=== PATIENT | male | born 1995 | race Caucasian/White ===

== ENCOUNTER 2016-12-09 16:38 | Emergency (ER) | payer BC, OTHER ==
[~2016-12-09] VITALS: Ht 177.8 cm; Wt 66.4 kg
[2016-12-09 16:40] VITALS: TEMP 36.6; Ht 177.8 cm; Wt 66.4 kg
[2016-12-09 17:52] LABS: BENZODIAZEPINE, URINE NEG (NEG); COCAINE,URINE NEG (NEG); PHENCYCLIDINE, URINE NEG (NEG)
[2016-12-09 18:25] LABS: BUN/CREATININE RATIO 16.2 (10-20); CALCIUM 8.8 mg/dl (8.5-10.1); CREATININE 1.2 mg/dl (0.60-1.40); POTASSIUM 3.7 mmol/L (3.5-5.1)
[2016-12-09 18:27] LABS: ACETAMINOPHEN < 2 ug/ml (10-30)
[2016-12-09 18:37] LABS: ALB/GLOB RATIO 1.4 (0.9-2); THYROID STIMULATING HORMONE 0.868 uIu/ml (0.300-4.500)
[2016-12-09 19:39] LABS: HEMATOCRIT 53.5 % (42-52); MEAN CELL VOLUME 89.5 fL (80-100); MEAN CORPUSCULAR HEMOGLOBIN 29.9 pg (25-34); MEAN CORPUSCULAR HGB CONC 33.5 g/dl (32-36); MEAN PLATELET VOLUME 12.5 fL (7.4-10.4); PLATELET COUNT 124 K/uL (130-400); RED BLOOD COUNT 5.98 M/uL (4.7-6.1); WHITE BLOOD COUNT 9.87 K/uL (4.8-10.8)
[2016-12-09 19:40] LABS: BASO % 0.2 %; BASO ABS # 0.02 K/uL (0-0.2); COMPLETE YES; EOS % 1.1 %; IG% 0.2 %; LYMPH % 18.5 %; LYMPH ABS # 1.83 K/uL (1.2-3.4); MONO % 7.9 %; NEUT % 72.1 %
--- NOTE | 2016-12-09 22:54 | EMERGENCY ROOM VISIT NOTE ---
History Report prepared by Clarisse: Dayana Caballero Under the Supervision of: Dr. Dav Chase D.O. First contact with patient: 16:47 Chief Complaint: MENTAL HEALTH EVALUATION Stated Complaint: MENTAL HEATLH EVAL, SUICIDAL IDEATION History of Present Illness The patient is a 21 year old male who presents to the Emergency Room with complaints of persistent suicidal thoughts for the past several months. Per the patient's aunt, the patient lost his mother 11 years ago. She states that in September, the patient's father committed suicide. The patient's aunt states that the patient has recently been in a bad place and is wanting to get help. The patient denies any specific plan, but reports depression. He denies any alcohol use or tobacco use. The patient states that he does use marijuana, noting that it "mellows him out." He denies any previous treatment for depression. Source of History: patient, family (aunt) Onset: past several months Position: other (global) Quality: other (suicidal thoughts) Timing: other (persistent) Note: Associated Symptoms: depression Review of Systems See HPI for pertinent positives & negatives. A total of 10 systems reviewed and were otherwise negative. Past Medical & Surgical No pertinent past medical history Family History Suicide Social History Smoking Status: Never Smoker Smokeless Tobacco Use: No Alcohol Use: none Drug Use: marijuana Marital Status: single Current/Historical Medications No Active Prescriptions or Reported Meds Allergies Coded Allergies: No Known Allergies (Unverified , 12/09/16) Physical Exam Vital Signs Date Time Temp Pulse Resp B/P (MAP) Pulse Ox O2 Delivery O2 Flow Rate FiO2 12/09/16 18:22 80 16 129/59 98 Room Air 12/09/16 16:40 36.6 84 16 137/81 97 Room Air Physical Exam CONSTITUTIONAL/VITAL SIGNS: Reviewed / noted above. GENERAL: Non-toxic in appearance. INTEGUMENTARY: Warm, dry, and [place]. HEAD: Normocephalic. EYES: without scleral icterus or trauma. Horizontal nystagmus at baseline ENT/OROPHARYNX: clear and moist. LYMPHADENOPATHY/NECK: Is supple without lymphadenopathy or meningismus. RESPIRATORY: Lungs clear and equal. CARDIOVASCULAR: Regular rate and rhythm. GI/ABDOMEN: Soft and nontender. No organomegaly or pulsatile mass. No rebound or guarding. Normal bowel sounds. EXTREMITIES: Warm and well perfused. BACK: No CVA tenderness. NEUROLOGICAL: Intact without focal deficits. PSYCHIATRIC: Suicidal ideation MUSCULOSKELETAL: Normally developed with good muscle tone. Medical Decision & Procedures Laboratory Results 12/09/16 17:29 Red Blood Count 5.98, Mean Corpuscular Volume 89.5, Mean Corpuscular Hemoglobin 29.9, Mean Corpuscular Hemoglobin Concent 33.5, Mean Platelet Volume 12.5, Neutrophils (%) (Auto) 72.1, Lymphocytes (%) (Auto) 18.5, Monocytes (%) (Auto) 7.9, Eosinophils (%) (Auto) 1.1, Basophils (%) (Auto) 0.2, Neutrophils # (Auto) 7.11, Lymphocytes # (Auto) 1.83, Monocytes # (Auto) 0.78, Eosinophils # (Auto) 0.11, Basophils # (Auto) 0.02 12/09/16 17:29 Test 12/09/16 16:51 12/09/16 17:29 Urine Opiates Screen NEG (NEG) Urine Methadone, Qualitative NEG (NEG) Urine Barbiturates NEG (NEG) Urine Phencyclidine (PCP) Level NEG (NEG) Ur Amphetamine/Methamphetamine NEG (NEG) MDMA (Ecstasy) Screen NEG (NEG) Urine Benzodiazepines Screen NEG (NEG) Urine Cocaine Metabolite NEG (NEG) Urine Marijuana (THC) POS (NEG) White Blood Count 9.87 K/uL (4.8-10.8) Red Blood Count 5.98 M/uL (4.7-6.1) Hemoglobin 17.9 g/dL (14.0-18.0) Hematocrit 53.5 % (42-52) Mean Corpuscular Volume 89.5 fL (80-100) Mean Corpuscular Hemoglobin 29.9 pg (25-34) Mean Corpuscular Hemoglobin Concent 33.5 g/dl (32-36) Platelet Count 124 K/uL (130-400) Mean Platelet Volume 12.5 fL (7.4-10.4) Neutrophils (%) (Auto) 72.1 % Lymphocytes (%) (Auto) 18.5 % Monocytes (%) (Auto) 7.9 % Eosinophils (%) (Auto) 1.1 % Basophils (%) (Auto) 0.2 % Neutrophils # (Auto) 7.11 K/uL (1.4-6.5) Lymphocytes # (Auto) 1.83 K/uL (1.2-3.4) Monocytes # (Auto) 0.78 K/uL (0.11-0.59) Eosinophils # (Auto) 0.11 K/uL (0-0.5) Basophils # (Auto) 0.02 K/uL (0-0.2) RDW Standard Deviation 41.8 fL (36.4-46.3) RDW Coefficient of Variation 12.7 % (11.5-14.5) Immature Granulocyte % (Auto) 0.2 % Immature Granulocyte # (Auto) 0.02 K/uL (0.00-0.02) Red Blood Cell Morphology Unremarkable Anion Gap 7.0 mmol/L (3-11) Est Creatinine Clear Calc Drug Dose 92.2 ml/min Estimated GFR () 100.3 Estimated GFR (Non- 86.5 BUN/Creatinine Ratio 16.2 (10-20) Calcium Level 8.8 mg/dl (8.5-10.1) Total Bilirubin 1.0 mg/dl (0.2-1) Aspartate Amino Transf (AST/SGOT) 39 U/L (15-37) Alanine Aminotransferase (ALT/SGPT) 50 U/L (12-78) Alkaline Phosphatase 95 U/L (45-117) Total Protein 7.1 gm/dl (6.4-8.2) Albumin 4.2 gm/dl (3.4-5.0) Globulin 2.9 gm/dl (2.5-4.0) Albumin/Globulin Ratio 1.4 (0.9-2) Thyroid Stimulating Hormone (TSH) 0.868 uIu/ml (0.300-4.500) Salicylates Level < 1.7 mg/dl (2.8-20) Acetaminophen Level < 2 ug/ml (10-30) Ethyl Alcohol mg/dL < 3.0 mg/dl (0-3) Laboratory results as stated above per my review. ED Course 1650: Previous medical records were reviewed. The patient was evaluated in room A6. A complete history and physical examination was performed. 6: Per the Psych Chemical Lab Supervisor, the patient has been accepted at the [facility] for further psychiatric care and evaluation. Medical Decision Differential includes toxic ingestions, self-mutilation, suicidal ideation, suicide attempt, and depression. This is a 21-year-old male who presents to the ED with a chief complaint of suicidal ideation. The patient details are listed above. The patient was medically cleared. He is accepted at the [facility]. He is being transported there by ambulance. Medication Reconcilliation Current Medication List: was personally reviewed by me Blood Pressure Screening Patient's blood pressure: Normal blood pressure Blood pressure disposition: Did not require urgent referral Impression Primary Impression: Suicidal ideation Scribe Attestation The scribe's documentation has been prepared under my direction and personally reviewed by me in its entirety. I confirm that the note above accurately reflects all work, treatment, procedures, and medical decision making performed by me. Departure Information Dispostion Mental Health Acute Care Prescriptions No Active Prescriptions or Reported Meds Referrals No Doctor, Assigned (PCP)
[2016-12-09 23:31] VITALS: BP 121/63; PULSE 82; O2SAT 98
== END 2016-12-09 23:32 ==
LOC: C.EDB 16:40 → C.EDA 23:32
DX: R45.851 Suicidal ideations (principal)

== ENCOUNTER 2017-02-02 16:48 | Emergency (ER) | payer BC, OTHER ==
[~2017-02-02] VITALS: Ht 175.3 cm; Wt 68.0 kg
[2017-02-02 16:52] VITALS: Ht 175.3 cm; Wt 68.0 kg
--- NOTE | 2017-02-02 17:15 | EMERGENCY ROOM VISIT NOTE ---
History Report prepared by Clarisse: Priya Sultana Under the Supervision of: Dr. Edenilson Beal D.O. First contact with patient: 16:58 Chief Complaint: MENTAL HEALTH EVALUATION Stated Complaint: SUICIDAL THOUGHTS History of Present Illness The patient is a 21 year old male who presents to the Emergency Room with complaints of suicidal thoughts beginning 2 weeks ago. Per a friend, the patient was discharged from [facility] on December 18 and was placed on medication. The patient states that he is no longer taking medication and has not been since thirty days after he was discharged from [facility]. The patient reports that he has suicidal thoughts a couple times per year. He denies any attempt at suicide. He reports that he saw his therapist 4 days ago. He states that he was diagnosed with bipolar disorder, schizophrenia, and PTSD. Per a friend, the patient was hearing voices in November but that he is not hearing them any more. Per a friend, the patient has also been very angry recently. Per a friend, the patient has a lump on his testicle that he would like to get checked. He reports that he would also have groin pain. The patient denies nausea and vomiting. Per case management, the patient's father committed suicide. Source of History: patient, friend, other (case management) Onset: 2 weeks ago Position: other (global) Quality: other (suicidal thoughts ) Timing: constant Associated Symptoms: No nausea, No vomiting Note: additional symptom: groin pain Review of Systems See HPI for pertinent positives & negatives. A total of 10 systems reviewed and were otherwise negative. Past Medical & Surgical Medical Problems: (1) Bipolar disorder (2) Schizophrenia Family History Suicide Social History Smoking Status: Never Smoker Alcohol Use: none Drug Use: marijuana Marital Status: single Current/Historical Medications Scheduled Risperidone (Risperdal), 1.5 TAB PO HS Sertraline (Zoloft), 100 MG PO DAILY Allergies Coded Allergies: No Known Allergies (Unverified , 02/02/17) Physical Exam Vital Signs Date Time Temp Pulse Resp B/P (MAP) Pulse Ox O2 Delivery O2 Flow Rate FiO2 02/02/17 22:14 52 20 97/49 98 Room Air 02/02/17 16:52 36.6 60 16 122/70 98 Room Air Physical Exam GENERAL: Patient is awake, alert, and in no acute distress. Patient is resting comfortably and mildly anxious and guarded. EYES: The conjunctivae are clear. The pupils are round and reactive. EARS, NOSE, MOUTH AND THROAT: The nose is without any evidence of any deformity. Mucous membranes are moist tongue is midline NECK: The neck is nontender and supple. RESPIRATORY: Normal respiratory effort is noted there is no evidence of wheezing rhonchi or rales CARDIOVASCULAR: Regular rate and rhythm noted there no murmurs rubs or gallops normal S1 normal S2 GASTROINTESTINAL: The abdomen is soft. Bowel sounds are present in all quadrants. Abdomen is nontender MUSCULOSKELETAL/EXTREMITIES: There is no evidence of gross deformity full range of motion is noted in the hips and shoulders SKIN: There is no obvious evidence of any rash. There are no petechiae, pallor or cyanosis noted. NEUROLOGIC: Patient is awake alert and oriented x3 PSYCH: Affect was flat. Patient shows poor eye contact. He is slow to answer questions. Currently admits to suicidal ideation but no plan. Medical Decision & Procedures ER Provider Diagnostic Interpretation: Radiology results as stated below per my review and radiologist interpretation: TESTICULAR ULTRASOUND HISTORY: Testicular mass COMPARISON: None. FINDINGS: Right testis: 4.2 x 2.8 x 2.2 cm. There are no intratesticular masses. Normal color flow. Small slightly complex hydrocele demonstrating internal echoes. The epididymis is unremarkable. Left testis: 4.4 x 2.9 x 2.0 cm. There are no intratesticular masses. Normal color flow. No hydrocele. The epididymis demonstrates 2 small cysts with the largest measuring 6 mm. IMPRESSION: 1. Normal bilateral testes. 2. Small slightly complex right-sided hydrocele. 3. Small left-sided epididymal head cysts. Electronically signed by: Favio San M.D. 02/02/2017 6:51 PM Dictated Date/Time: 02/02/2017 6:49 PM Laboratory Results 02/02/17 17:21 Red Blood Count 6.14, Mean Corpuscular Volume 89.1, Mean Corpuscular Hemoglobin 30.5, Mean Corpuscular Hemoglobin Concent 34.2, Mean Platelet Volume 12.7, Neutrophils (%) (Auto) 62.0, Lymphocytes (%) (Auto) 26.4, Monocytes (%) (Auto) 9.5, Eosinophils (%) (Auto) 1.5, Basophils (%) (Auto) 0.2, Neutrophils # (Auto) 5.27, Lymphocytes # (Auto) 2.24, Monocytes # (Auto) 0.81, Eosinophils # (Auto) 0.13, Basophils # (Auto) 0.02 02/02/17 17:21 Test 02/02/17 17:05 02/02/17 17:21 Urine Color YELLOW Urine Appearance CLEAR (CLEAR) Urine pH 6.5 (4.5-7.5) Urine Specific [place] 1.027 (1.000-1.030) Urine Protein TRACE (NEG) Urine Glucose (UA) NEG (NEG) Urine Ketones 1+ (NEG) Urine Occult Blood NEG (NEG) Urine Nitrite NEG (NEG) Urine Bilirubin NEG (NEG) Urine Urobilinogen NEG (NEG) Urine Leukocyte Esterase NEG (NEG) Urine WBC (Auto) 0 /hpf (0-5) Urine RBC (Auto) 0-4 /hpf (0-4) Urine Hyaline Casts (Auto) 0 /lpf (0-5) Urine Epithelial Cells (Auto) 0-5 /lpf (0-5) Urine Bacteria (Auto) NEG (NEG) Urine Opiates Screen NEG (NEG) Urine Methadone, Qualitative NEG (NEG) Urine Barbiturates NEG (NEG) Urine Phencyclidine (PCP) Level NEG (NEG) Ur Amphetamine/Methamphetamine NEG (NEG) MDMA (Ecstasy) Screen NEG (NEG) Urine Benzodiazepines Screen NEG (NEG) Urine Cocaine Metabolite NEG (NEG) Urine Marijuana (THC) POS (NEG) White Blood Count 8.50 K/uL (4.8-10.8) Red Blood Count 6.14 M/uL (4.7-6.1) Hemoglobin 18.7 g/dL (14.0-18.0) Hematocrit 54.7 % (42-52) Mean Corpuscular Volume 89.1 fL (80-100) Mean Corpuscular Hemoglobin 30.5 pg (25-34) Mean Corpuscular Hemoglobin Concent 34.2 g/dl (32-36) Platelet Count 118 K/uL (130-400) Mean Platelet Volume 12.7 fL (7.4-10.4) Neutrophils (%) (Auto) 62.0 % Lymphocytes (%) (Auto) 26.4 % Monocytes (%) (Auto) 9.5 % Eosinophils (%) (Auto) 1.5 % Basophils (%) (Auto) 0.2 % Neutrophils # (Auto) 5.27 K/uL (1.4-6.5) Lymphocytes # (Auto) 2.24 K/uL (1.2-3.4) Monocytes # (Auto) 0.81 K/uL (0.11-0.59) Eosinophils # (Auto) 0.13 K/uL (0-0.5) Basophils # (Auto) 0.02 K/uL (0-0.2) RDW Standard Deviation 43.1 fL (36.4-46.3) RDW Coefficient of Variation 13.2 % (11.5-14.5) Immature Granulocyte % (Auto) 0.4 % Immature Granulocyte # (Auto) 0.03 K/uL (0.00-0.02) Anion Gap 6.0 mmol/L (3-11) Est Creatinine Clear Calc Drug Dose 81.0 ml/min Estimated GFR () 83.2 Estimated GFR (Non- 71.8 BUN/Creatinine Ratio 16.2 (10-20) Calcium Level 9.0 mg/dl (8.5-10.1) Total Bilirubin 1.2 mg/dl (0.2-1) Direct Bilirubin 0.2 mg/dl (0-0.2) Aspartate Amino Transf (AST/SGOT) 23 U/L (15-37) Alanine Aminotransferase (ALT/SGPT) 26 U/L (12-78) Alkaline Phosphatase 96 U/L (45-117) Total Protein 7.7 gm/dl (6.4-8.2) Albumin 4.7 gm/dl (3.4-5.0) Thyroid Stimulating Hormone (TSH) 1.650 uIu/ml (0.300-4.500) Ethyl Alcohol mg/dL < 3.0 mg/dl (0-3) Laboratory results per my review. ED Course 1708: The patient was evaluated in room A7. A complete history and physical examination were performed. 0: I updated the patient on his results. 0: The patient will be transferred to [place]. Medical Decision Differential diagnosis: Etiologies such as mood disorder, infection, hypoglycemia, electrolyte abnormalities, cardiac sources, intracerebral event, toxicologic, neurologic, as well as others were entertained. Nursing notes reviewed. Additional history is obtained from the patient's caregiver. The patient is a 21-year-old male who presented to emergency department for an evaluation of problems with his mental health. The patient has a history of suicidal ideation as well as schizophrenia. It sounds as though the patient has not been compliant with his medications. The patient was medically cleared in the emergency department. He was reevaluated multiple times. I discussed the patient's laboratory and radiographic studies with him. He was evaluated by the emergency Department mental health foster care case manager. At this time he was felt to be a good candidate for inpatient management. Currently bed search is underway. Medication Reconcilliation Current Medication List: was personally reviewed by me Blood Pressure Screening Patient's blood pressure: Normal blood pressure Impression Primary Impression: Depression Additional Impressions: Acute anxiety Suicidal ideation Hydrocele Scribe Attestation The scribe's documentation has been prepared under my direction and personally reviewed by me in its entirety. I confirm that the note above accurately reflects all work, treatment, procedures, and medical decision making performed by me. Departure Information Dispostion Discharge/Transfer to [facility] Referrals No Doctor, Assigned (PCP) Patient Instructions My [facility] Problem Qualifiers Primary Impression: Depression Depression Type: unspecified Qualified Codes: F32.9 - Major depressive disorder, single episode, unspecified Additional Impressions: Hydrocele Hydrocele type: unspecified Qualified Codes: N43.3 - Hydrocele, unspecified
[2017-02-02 17:20] LABS: URINE APPEARANCE CLEAR (CLEAR); URINE BILIRUBIN NEG (NEG); URINE COLOR YELLOW; URINE EPITHELIAL CELL AUTO 0-5 /lpf (0-5); URINE NITRITE NEG (NEG); URINE PH 6.5 (4.5-7.5); URINE SPECIFIC GRAVITY 1.027 (1.000-1.030); UROBILINOGEN NEG (NEG)
[2017-02-02 17:26] LABS: MANUAL MICROSCOPIC REQUIRED? NO; REVIEW REQ? NO
[2017-02-02 17:46] LABS: BENZODIAZEPINE, URINE NEG (NEG); COCAINE,URINE NEG (NEG); PHENCYCLIDINE, URINE NEG (NEG)
[2017-02-02 17:54] LABS: BUN/CREATININE RATIO 16.2 (10-20); CREATININE 1.4 mg/dl (0.60-1.40); POTASSIUM 3.9 mmol/L (3.5-5.1)
[2017-02-02 18:02] LABS: HEMATOCRIT 54.7 % (42-52); MEAN CELL VOLUME 89.1 fL (80-100); MEAN CORPUSCULAR HEMOGLOBIN 30.5 pg (25-34); MEAN CORPUSCULAR HGB CONC 34.2 g/dl (32-36); MEAN PLATELET VOLUME 12.7 fL (7.4-10.4); PLATELET COUNT 118 K/uL (130-400); RED BLOOD COUNT 6.14 M/uL (4.7-6.1)
[2017-02-02 18:03] LABS: BASO % 0.2 %; BASO ABS # 0.02 K/uL (0-0.2); COMPLETE YES; EOS % 1.5 %; IG% 0.4 %; LYMPH % 26.4 %; LYMPH ABS # 2.24 K/uL (1.2-3.4); MONO % 9.5 %
[2017-02-02 18:04] LABS: THYROID STIMULATING HORMONE 1.65 uIu/ml (0.300-4.500)
[2017-02-02] MEDS ORDERED: SERT-234 PO (18:49)
[2017-02-02] MEDS ORDERED: RISP1TAB68 PO (18:49)
--- NOTE | 2017-02-02 18:52 | DIAGNOSTIC IMAGING REPORT ---
TESTICULAR ULTRASOUND HISTORY: Testicular mass COMPARISON: None. FINDINGS: Right testis: 4.2 x 2.8 x 2.2 cm. There are no intratesticular masses. Normal color flow. Small slightly complex hydrocele demonstrating internal echoes. The epididymis is unremarkable. Left testis: 4.4 x 2.9 x 2.0 cm. There are no intratesticular masses. Normal color flow. No hydrocele. The epididymis demonstrates 2 small cysts with the largest measuring 6 mm. IMPRESSION: 1. Normal bilateral testes. 2. Small slightly complex right-sided hydrocele. 3. Small left-sided epididymal head cysts. Electronically signed by: Favio San M.D. 02/02/2017 6:51 PM Dictated Date/Time: 02/02/2017 6:49 PM
[2017-02-03 00:14] VITALS: BP 101/49; PULSE 60; TEMP 36.8; O2SAT 98
== END 2017-02-02 23:30 ==
LOC: C.EDB 16:49 → C.EDA 23:30
DX: F32.9 Major depressive disorder, single episode, unspecified (principal); F41.9 Anxiety disorder, unspecified; R45.851 Suicidal ideations; N43.3 Hydrocele, unspecified; F31.9 Bipolar disorder, unspecified; F20.9 Schizophrenia, unspecified; F12.90 Cannabis use, unspecified, uncomplicated

== ENCOUNTER → 2017-02-10 | Outpatient (CLI) | payer BC ==
[~2017-02-10] MED LIST: RISP1TAB68 PO; SERT-234 PO
[2017-02-10 12:27] LABS: ALT/SGPT 23 U/L (12-78); BLOOD UREA NITROGEN 14 mg/dl (7-18); BUN/CREATININE RATIO 11.4 (10-20); CARBON DIOXIDE 28 mmol/L (21-32); CHLORIDE 105 mmol/L (98-107); CREATININE 1.25 mg/dl (0.60-1.40); GLUCOSE 82 mg/dl (70-99); POTASSIUM 4.3 mmol/L (3.5-5.1); SODIUM 140 mmol/L (136-145)
[2017-02-10 12:28] LABS: HEMATOCRIT 51.2 % (42-52); MEAN CELL VOLUME 90.9 fL (80-100); MEAN CORPUSCULAR HEMOGLOBIN 30.2 pg (25-34); MEAN CORPUSCULAR HGB CONC 33.2 g/dl (32-36); MEAN PLATELET VOLUME 12.9 fL (7.4-10.4); PLATELET COUNT 108 K/uL (130-400); RED BLOOD COUNT 5.63 M/uL (4.7-6.1); WHITE BLOOD COUNT 6.38 K/uL (4.8-10.8)
[2017-02-10 12:31] LABS: ALB/GLOB RATIO 1.5 (0.9-2); ALKALINE PHOSPHATASE 87 U/L (45-117); AST/SGOT 24 U/L (15-37); FERRITIN 168.5 ng/ml (8.0-388.0); TOTAL IRON BINDING CAPACITY 286 mcg/dl (250-450)
[2017-02-10 13:08] LABS: BASO % 0.5 %; BASO ABS # 0.03 K/uL (0-0.2); COMPLETE YES; EOS % 1.9 %; IG% 0.3 %; LYMPH % 36.2 %; LYMPH ABS # 2.31 K/uL (1.2-3.4); MONO % 10.8 %; NEUT % 50.3 %
== END | disposition home or self-care (01) ==
LOC: C.LABBFT 09:53
PROVIDERS: ATTEND Nurse Practitioner
DX: D75.1 Secondary polycythemia (principal)

== ENCOUNTER 2017-02-11 13:27 | Emergency (ER) | payer BC ==
[~2017-02-11] VITALS: Ht 175.3 cm; Wt 68.9 kg
[2017-02-11 13:31] VITALS: Ht 175.3 cm; Wt 68.9 kg
[2017-02-11 14:29] LABS: BUN/CREATININE RATIO 12.3 (10-20); CALCIUM 8.8 mg/dl (8.5-10.1); CREATININE 1.18 mg/dl (0.60-1.40); POTASSIUM 3.7 mmol/L (3.5-5.1)
[2017-02-11 14:37] LABS: URINE APPEARANCE CLEAR (CLEAR); URINE BILIRUBIN NEG (NEG); URINE COLOR YELLOW; URINE NITRITE NEG (NEG); URINE PH 7.5 (4.5-7.5); URINE SPECIFIC GRAVITY 1.018 (1.000-1.030); UROBILINOGEN NEG (NEG)
[2017-02-11 14:39] LABS: MANUAL MICROSCOPIC REQUIRED? NO; REVIEW REQ? NO
[2017-02-11 14:40] LABS: THYROID STIMULATING HORMONE 1.29 uIu/ml (0.300-4.500)
[2017-02-11 15:19] LABS: BASO % 0.3 %; BASO ABS # 0.02 K/uL (0-0.2); COMPLETE YES; HEMATOCRIT 54.4 % (42-52); IG% 0.1 %; LYMPH % 24.1 %; LYMPH ABS # 1.63 K/uL (1.2-3.4); MEAN CELL VOLUME 89.5 fL (80-100); MEAN CORPUSCULAR HEMOGLOBIN 29.9 pg (25-34); MEAN CORPUSCULAR HGB CONC 33.5 g/dl (32-36); MEAN PLATELET VOLUME 12.5 fL (7.4-10.4); NEUT % 66.5 %; PLATELET COUNT 107 K/uL (130-400); PLT ESTIMATE DECREASED; RED BLOOD COUNT 6.08 M/uL (4.7-6.1); WHITE BLOOD COUNT 6.77 K/uL (4.8-10.8)
[2017-02-11 15:26] LABS: BENZODIAZEPINE, URINE NEG (NEG); COCAINE,URINE NEG (NEG); PHENCYCLIDINE, URINE NEG (NEG)
--- NOTE | 2017-02-11 17:40 | EMERGENCY ROOM VISIT NOTE ---
History Report prepared by Clarisse: Ramana Bower Under the Supervision of: Dr. Ivan Jensen D.O. First contact with patient: 13:38 Chief Complaint: MENTAL HEALTH EVALUATION Stated Complaint: HEARING VOICE-TOLD PATIENT TO JUMP OFF BRIDGE History of Present Illness The patient is a 21 year old male who presents to the Emergency Room for a mental health evaluation. He has a history of auditory hallucinations that began in April 2016. His father also committed suicide in September of 2016. Yesterday, the voice told him to jump off a bridge. They have never done this before. He notes that he has not been taking his medications because he has been out of them. He would like help as an inpatient. He has only been sleeping about 3-4 hours a night. He also sold his possessions because he said he did not need them anymore. He denies any alcohol use. He admits to frequent marijuana use. Per the patient's psychiatric counsellor, he was seen at the [facility] in September for a suicidal ideation. He has not tried to commit suicide. He was seen in [facility] last week for a SI, but lied to them and signed out AMA. Yesterday, he posted on Facebook stating that he wanted to kill himself and the voices were telling him to kill himself by jumping off a bridge. Source of History: patient Onset: Yesterday Position: other (Mental Health) Symptom Intensity: severe Quality: other (Auditory Hallucinations) Timing: worsening Note: He denies any physical symptoms. Review of Systems See HPI for pertinent positives & negatives. A total of 10 systems reviewed and were otherwise negative. Past Medical & Surgical Medical Problems: (1) Bipolar disorder (2) Schizophrenia Family History Suicide Social History Smoking Status: Never Smoker Alcohol Use: none Drug Use: marijuana Marital Status: single Current/Historical Medications No Active Prescriptions or Reported Meds Allergies Coded Allergies: No Known Allergies (Unverified , 02/11/17) Physical Exam Vital Signs Date Time Temp Pulse Resp B/P (MAP) Pulse Ox O2 Delivery O2 Flow Rate FiO2 02/11/17 15:10 87 14 115/52 98 Room Air 02/11/17 13:31 36.6 71 16 123/72 98 Room Air Physical Exam GENERAL: Standing in the room, alert, anxious appearing, well nourished, no distress, non-toxic EYE EXAM: normal conjunctiva OROPHARYNX: no exudate, no erythema, lips, buccal mucosa, and tongue normal and mucous membranes are moist NECK: supple, no nuchal rigidity, no adenopathy, non-tender LUNGS: Clear to auscultation. Normal chest wall mechanics HEART: no murmurs, S1 normal and S2 normal ABDOMEN: abdomen soft, non-tender, normo-active bowel sounds, no masses, no rebound or guarding. BACK: Back is symmetrical on inspection and there is no deformity, no midline tenderness, no CVA tenderness. SKIN: no rashes and no bruising UPPER EXTREMITIES: upper extremities are grossly normal. LOWER EXTREMITIES: No pitting edema. NEURO EXAM: Normal sensorium, cranial nerves II-XII grossly intact, normal speech, no gross weakness of arms, no gross weakness of legs. PSYCH EXAM: Flat affect. Makes poor eye contact. Admits to auditory hallucinations telling him to kill himself. Medical Decision & Procedures Laboratory Results 02/11/17 13:54 Red Blood Count 6.08, Mean Corpuscular Volume 89.5, Mean Corpuscular Hemoglobin 29.9, Mean Corpuscular Hemoglobin Concent 33.5, Mean Platelet Volume 12.5, Neutrophils (%) (Auto) 66.5, Lymphocytes (%) (Auto) 24.1, Monocytes (%) (Auto) 8.0, Eosinophils (%) (Auto) 1.0, Basophils (%) (Auto) 0.3, Neutrophils # (Auto) 4.50, Lymphocytes # (Auto) 1.63, Monocytes # (Auto) 0.54, Eosinophils # (Auto) 0.07, Basophils # (Auto) 0.02 02/11/17 13:54 Test 02/11/17 13:54 02/11/17 14:15 White Blood Count 6.77 K/uL (4.8-10.8) Red Blood Count 6.08 M/uL (4.7-6.1) Hemoglobin 18.2 g/dL (14.0-18.0) Hematocrit 54.4 % (42-52) Mean Corpuscular Volume 89.5 fL (80-100) Mean Corpuscular Hemoglobin 29.9 pg (25-34) Mean Corpuscular Hemoglobin Concent 33.5 g/dl (32-36) Platelet Count 107 K/uL (130-400) Mean Platelet Volume 12.5 fL (7.4-10.4) Neutrophils (%) (Auto) 66.5 % Lymphocytes (%) (Auto) 24.1 % Monocytes (%) (Auto) 8.0 % Eosinophils (%) (Auto) 1.0 % Basophils (%) (Auto) 0.3 % Neutrophils # (Auto) 4.50 K/uL (1.4-6.5) Lymphocytes # (Auto) 1.63 K/uL (1.2-3.4) Monocytes # (Auto) 0.54 K/uL (0.11-0.59) Eosinophils # (Auto) 0.07 K/uL (0-0.5) Basophils # (Auto) 0.02 K/uL (0-0.2) RDW Standard Deviation 42.2 fL (36.4-46.3) RDW Coefficient of Variation 13.0 % (11.5-14.5) Immature Granulocyte % (Auto) 0.1 % Immature Granulocyte # (Auto) 0.01 K/uL (0.00-0.02) Platelet Estimate DECREASED Anion Gap 7.0 mmol/L (3-11) Est Creatinine Clear Calc Drug Dose 97.3 ml/min Estimated GFR () 102.3 Estimated GFR (Non- 88.3 BUN/Creatinine Ratio 12.3 (10-20) Calcium Level 8.8 mg/dl (8.5-10.1) Total Bilirubin 1.1 mg/dl (0.2-1) Direct Bilirubin 0.2 mg/dl (0-0.2) Aspartate Amino Transf (AST/SGOT) 25 U/L (15-37) Alanine Aminotransferase (ALT/SGPT) 23 U/L (12-78) Alkaline Phosphatase 88 U/L (45-117) Total Protein 7.3 gm/dl (6.4-8.2) Albumin 4.6 gm/dl (3.4-5.0) Thyroid Stimulating Hormone (TSH) 1.290 uIu/ml (0.300-4.500) Ethyl Alcohol mg/dL < 3.0 mg/dl (0-3) Urine Color YELLOW Urine Appearance CLEAR (CLEAR) Urine pH 7.5 (4.5-7.5) Urine Specific [place] 1.018 (1.000-1.030) Urine Protein NEG (NEG) Urine Glucose (UA) NEG (NEG) Urine Ketones TRACE (NEG) Urine Occult Blood NEG (NEG) Urine Nitrite NEG (NEG) Urine Bilirubin NEG (NEG) Urine Urobilinogen NEG (NEG) Urine Leukocyte Esterase NEG (NEG) Urine Opiates Screen NEG (NEG) Urine Methadone, Qualitative NEG (NEG) Urine Barbiturates NEG (NEG) Urine Phencyclidine (PCP) Level NEG (NEG) Ur Amphetamine/Methamphetamine NEG (NEG) MDMA (Ecstasy) Screen NEG (NEG) Urine Benzodiazepines Screen NEG (NEG) Urine Cocaine Metabolite NEG (NEG) Urine Marijuana (THC) POS (NEG) Laboratory results per my review. ED Course ED COURSE: Vital signs were reviewed and showed normal vitals. The patients medical record was reviewed The above diagnostic studies were performed and reviewed. ED treatments and interventions as stated above. 1338: The patient was evaluated in room A7. A complete history and physical examination was performed. 1710: I reevaluated the patient at this time. 1800: The patient was signed out to Dr. Beal at the change in shifts. Medical Decision Differential diagnosis: Etiologies such as mood disorder, infection, hypoglycemia, electrolyte abnormalities, cardiac sources, intracerebral event, toxicologic, neurologic, as well as others were entertained. Patient is a 21-year-old male who presents to ER for hearing voices which are telling him to kill himself. Patient has been hearing voices since this past April that recently getting worse. Multiple stays in mental health facilities. CBC all BMP, LFTs and TSH was normal. Total bili was slightly elevated at 1.1. Alcohol negative. Marijuana was positive which she admits to. UA was negative. Patient was brought in by attendance secretary. Patient did post on Facebook that he is going to kill himself. 302 petition. He also stole all of his possessions as he states he will not need them anymore. Patient is medically stable and bed search is being performed. Patient is currently agreeable to come in on a 201. Patient was signed out to Dr. Beal with bed search in process. Medication Reconcilliation Current Medication List: was personally reviewed by me Blood Pressure Screening Patient's blood pressure: Normal blood pressure Blood pressure disposition: Did not require urgent referral Impression Primary Impression: Mood disorder Additional Impression: Auditory hallucinations Scribe Attestation The scribe's documentation has been prepared under my direction and personally reviewed by me in its entirety. I confirm that the note above accurately reflects all work, treatment, procedures, and medical decision making performed by me. Departure Information Dispostion Still a Patient Prescriptions No Active Prescriptions or Reported Meds Referrals No Doctor, Assigned (PCP) Patient Instructions My [facility] Problem Qualifiers
[2017-02-11 20:11] VITALS: TEMP 36.8
--- NOTE | 2017-02-11 21:25 | EMERGENCY ROOM VISIT NOTE ---
ED Visit Note First contact with patient: 21:25 I received this patient at change of shift signout from Dr. Jensen. Please see his note for complete history and physical. The patient was medically cleared prior to my arrival. Bed search was underway. I was notified by the emergency Department mental health delegate that the patient was accepted at [facility] for a voluntary admission. Transfer paperwork and medical necessity form as well as 201 was filled out by myself. The patient had no requirements.
[2017-02-12 00:30] VITALS: BP 127/60; PULSE 90; O2SAT 99
== END 2017-02-12 00:30 | disposition short-term general hospital (02) ==
LOC: C.EDB 13:29 → C.EDA 02-12 00:30
DX: F39 Unspecified mood [affective] disorder (principal); R44.0 Auditory hallucinations; F20.9 Schizophrenia, unspecified

== ENCOUNTER 2017-06-18 17:18 | Emergency (ER) | payer BC, OTHER ==
[~2017-06-18] VITALS: Ht 175.3 cm; Wt 72.1 kg
[2017-06-18 17:28] VITALS: TEMP 37; Ht 175.3 cm; Wt 72.1 kg
[2017-06-18] MEDS ORDERED: ARIP1.3I SQ (18:30)
[2017-06-18 18:40] LABS: HEMATOCRIT 52.3 % (42-52); HEMOGLOBIN 18.6 g/dL (14.0-18.0); MEAN CORPUSCULAR HEMOGLOBIN 31.3 pg (25-34); MEAN CORPUSCULAR HGB CONC 35.6 g/dl (32-36); MEAN PLATELET VOLUME 12.5 fL (7.4-10.4); PLATELET COUNT 116 K/uL (130-400); RED CELL DISTRIBUTION WIDTH CV 12.9 % (11.5-14.5); RED CELL DISTRIBUTION WIDTH SD 41.5 fL (36.4-46.3)
[2017-06-18 18:43] LABS: ALBUMIN 4.6 gm/dl (3.4-5.0); CALCIUM 9.4 mg/dl (8.5-10.1); CREATININE 1.34 mg/dl (0.60-1.40); POTASSIUM 3.5 mmol/L (3.5-5.1)
[2017-06-18 18:53] LABS: TOTAL PROTEIN 7.7 gm/dl (6.4-8.2)
--- NOTE | 2017-06-18 20:34 | EMERGENCY ROOM VISIT NOTE ---
History Report prepared by Clarisse: Justyna Hurtado Under the Supervision of: Dr. Wayne Mujica M.D. First contact with patient: 17:36 Chief Complaint: MENTAL HEALTH EVALUATION Stated Complaint: MENTAL HEALTH EVAL History of Present Illness The patient is a 22 year old male who presents to the Emergency Room with complaints of worsening depression starting several days ago. His father last year and he has been thinking more about this recently. The patient's sister states that he wrote on his Facebook page 3 days ago about wanting to take his own life. He also sent some concerning messages today to a friend. The patient denies any thoughts of hurting himself or others. He denies any auditory or visual hallucinations. He is eating and sleeping normally. He denies any recent head injury. He denies any headache, vomiting, fever, flu symptoms, or pain. He admits to smoking marijuana, but not recently. He has a history of bipolar and schizophrenia. He has been taking his medications. He states he only came here because he was depressed and wanted to talk to somebody. Source of History: patient, family Onset: several days ago Position: other (global) Quality: other (depression) Timing: worsening Associated Symptoms: No fevers, No headache, No vomiting Note: Pt denies hallucinations, thoughts of hurting others. Review of Systems See HPI for pertinent positives & negatives. A total of 10 systems reviewed and were otherwise negative. Past Medical & Surgical Medical Problems: (1) Bipolar disorder (2) Schizophrenia Family History Suicide Social History Smoking Status: Never Smoker Drug Use: marijuana Marital Status: single Occupation Status: unemployed Current/Historical Medications Scheduled Aripiprazole (Abiliftima Maintena), 0 SQ MONTHLY Allergies Coded Allergies: No Known Allergies (Unverified , 06/18/17) Physical Exam Vital Signs Date Time Temp Pulse Resp B/P (MAP) Pulse Ox O2 Delivery O2 Flow Rate FiO2 06/18/17 17:28 37.0 85 18 137/89 97 Room Air Physical Exam Constitutional: Vital signs reviewed. Eyes: Pupils are equal round reactive to light. Conjunctiva are noninjected. Old looking bruise to the lateral aspect of the right eye without any bony tenderness. ENT: Pharynx is clear without erythema or exudate. Mucous membranes are moist. Neck supple without meningeal signs. Respiratory: Clear to auscultation bilaterally. Breath sounds are equal bilaterally. Cardiovascular: Regular rate and rhythm. No rubs or gallops. GI: Soft, nondistended and nontender. Bowel sounds are present. Musculoskeletal: No peripheral edema. No wrist lacerations. Integumentary: No cyanosis. Neurological: The patient is awake and alert. No focal deficits. Psychiatric: Flat affect. Medical Decision & Procedures Laboratory Results 06/18/17 17:53 06/18/17 17:53 Test 06/18/17 17:53 06/18/17 18:10 Red Blood Count 5.94 M/uL (4.7-6.1) Mean Corpuscular Volume 88.0 fL (80-100) Mean Corpuscular Hemoglobin 31.3 pg (25-34) Mean Corpuscular Hemoglobin Concent 35.6 g/dl (32-36) RDW Standard Deviation 41.5 fL (36.4-46.3) RDW Coefficient of Variation 12.9 % (11.5-14.5) Mean Platelet Volume 12.5 fL (7.4-10.4) Platelet Estimate DECREASED Anion Gap 6.0 mmol/L (3-11) Est Creatinine Clear Calc Drug Dose 87.2 ml/min Estimated GFR () 87.2 Estimated GFR (Non- 75.2 BUN/Creatinine Ratio 17.3 (10-20) Calcium Level 9.4 mg/dl (8.5-10.1) Total Bilirubin 0.7 mg/dl (0.2-1) Direct Bilirubin 0.1 mg/dl (0-0.2) Aspartate Amino Transf (AST/SGOT) 29 U/L (15-37) Alanine Aminotransferase (ALT/SGPT) 33 U/L (12-78) Alkaline Phosphatase 75 U/L (45-117) Total Protein 7.7 gm/dl (6.4-8.2) Albumin 4.6 gm/dl (3.4-5.0) Thyroid Stimulating Hormone (TSH) 2.510 uIu/ml (0.300-4.500) Salicylates Level < 1.7 mg/dl (2.8-20) Acetaminophen Level < 2 ug/ml (10-30) Ethyl Alcohol mg/dL < 3.0 mg/dl (0-3) Urine Opiates Screen NEG (NEG) Urine Methadone, Qualitative NEG (NEG) Urine Barbiturates NEG (NEG) Urine Phencyclidine (PCP) Level NEG (NEG) Ur Amphetamine/Methamphetamine NEG (NEG) MDMA (Ecstasy) Screen NEG (NEG) Urine Benzodiazepines Screen NEG (NEG) Urine Cocaine Metabolite NEG (NEG) Urine Marijuana (THC) POS (NEG) Laboratory results as reviewed by me. ED Course 1738: The patient was evaluated in room A5. A complete history and physical exam was performed. 2029: The patient is declining voluntary admission at this time. His sister is filling out a 302. [facility] is involved. 2143: The patient is unwilling to sign in. 302 warrant signed, pending placement. Medical Decision This is a 22-year-old male who presents for mental health evaluation. I did perform a limited focused review of portions of the patient's old chart on the electronic medical record. The patient was admitted to a mental health facility voluntarily in January of last year. He has a history of bipolar and schizophrenia. I did evaluate the patient as noted above. I did obtain history from the patient as well as his sister. His sister did show me messages that he put on his Facebook page which stated that he wanted to kill himself rather than take his injections. I did order and review the patient's blood work as noted in the electronic medical record. The patient does have a slightly elevated hemoglobin as well as low platelets. Review of his old lab work demonstrates similar findings previously. I did medically clear the patient. He is being assessed by [facility] for [facility] care. Patient was signed out to Dr. sin. Medication Reconcilliation Current Medication List: was personally reviewed by me Blood Pressure Screening Patient's blood pressure: Elevated blood pressure Blood pressure disposition: Elevated BP felt to be situational Impression Primary Impression: Mood disorder Additional Impression: Suicidal ideation Scribe Attestation The scribe's documentation has been prepared under my direct and personally reviewed by me in its entirety. I confirm that the note above accurately reflects all work, treatment, procedures, and medical decision making performed by me. Departure Information Dispostion Still a Patient Referrals No Doctor, Assigned (PCP) Forms HOME CARE DOCUMENTATION FORM, IMPORTANT VISIT INFORMATION Patient Instructions My [facility] Problem Qualifiers
[2017-06-19 02:14] VITALS: BP 128/55; PULSE 72; O2SAT 100
--- NOTE | 2017-06-28 23:01 | EMERGENCY ROOM VISIT NOTE ---
ED Visit Note First contact with patient: 04:00 Pt signed out to me by Dr. Mujica. 302 signed. Pt admitted to the [facility].
== END 2017-06-19 02:14 ==
LOC: C.EDB 17:19 → C.EDA 06-19 02:14
DX: F31.9 Bipolar disorder, unspecified (principal); F20.9 Schizophrenia, unspecified; R45.851 Suicidal ideations; D69.6 Thrombocytopenia, unspecified; D58.2 Other hemoglobinopathies; R03.0 Elevated blood-pressure reading, without diagnosis of hypertension; F12.90 Cannabis use, unspecified, uncomplicated; S00.11XA Contusion of right eyelid and periocular area, initial encounter; X58.XXXA Exposure to other specified factors, initial encounter; Z81.8 Family history of other mental and behavioral disorders

== ENCOUNTER 2020-10-24 17:03 | Inpatient (IN) ==
--- NOTE | 2020-10-24 17:17 | Emergency Department Note ---
Impression & Plan Suicidal ideation, Bipolar disorder ED Provider Note NAME: THERESA DALLAS AGE: 25 SEX: M : 1995 ARRIVES VIA: Walk-In INFORMANT: Patient, ED PROVIDER(S): Quinton Ferguson MD Chief Complaint: Mental wellness concern HPI: Patient was brought in by [facility] police due to concern for mental wellness and concern for SI. The patient reportedly had sent some text messages to an aunt staying that he would kill himself. Patient currently denies that at that time. Patient denies any prior history of SI. The patient denies any HI or AVH. Patient states his appetite has been good but his sleep h as been okay albeit sometimes not as much. The patient does not have access to guns. The patient has not been on medications for history of mental wellness since 2018. Patient denies any alcohol or tobacco use. The patient does occasionally use marijuana. The patient does not live by himself and feels safe at home. ROS: See HPI for pertinent positives and negatives. A total of 10 systems were reviewed and otherwise negative. Past medical history: See below Surgical history: See below Social history: See below Physical Exam: GENERAL: Wearing a mask. NAD, non-toxic. EYE EXAM: Normal conjunctiva. PERRL, no anisocoria and EOM's grossly intact w/o pain. NECK: Supple, no nuchal rigidity, no adenopathy, non-tender. No signs of meningismus. LUNGS: Clear to auscultation. Normal chest wall mechanics. HEART: NSR, no MRG. ABDOMEN: Abdomen soft, non-tender, normo-active bowel sounds, no masses, no rebound or guarding. BACK: No CVA TTP. SKIN: No rashes and no bruising. UPPER EXTREMITIES: Upper extremities are grossly normal. LOWER EXTREMITIES: Grossly normal, no edema. NEURO EXAM: A&O x3, cranial nerves II-XII grossly intact, normal speech, moves all 4 extremities on command w/o issue. Psych: Denies SI, HI, or AVH. Differential diagnoses: Mood disorder, infection, hypoglycemia, electrolyte abnormalities, cardiac sources, intracerebral event, toxicologic, trauma, neurologic, as well as other pathologies. Course: Patient was seen and evaluated the bedside. Full history physical exam was performed. MDM: Patient was seen due to concern for mental wellness. Patient did have bladder completed was deemed medically medically cleared. Covid pending. Referral is made for 3 S. Patient was signed out to Dr. Burr pending admission. Past Med/Surg History Medical History Bipolar disorder Schizophrenia Suicidal ideation Surgical History No pertinent past surgical history Family History Father Suicide Social History Smoking Status: Never smoker Preferred Language: Ukrainian Feels Safe at Home: Yes Allergies Allergies Allergy/AdvReac Type Severity Reaction Status Date / Time No Known Allergies Allergy Verified 10/24/20 22:06 Home Meds Home Medications Medication Instructions Recorded Confirmed No Known Home Medications 09/07/18 10/24/20 Results & Data (ED) Vital Signs Vital Signs - 24 hr 10/24/20 17:25 10/24/20 23:25 Temperature 36.8 C Temperature Source Oral Pulse Rate 77 Pulse Rate [Right] 67 Pulse Rhythm Regular Pulse Rhythm [Right] Regular Pulse Strength Normal Pulse Strength [Right] Normal Respiratory Rate 18 18 Respiratory Effort / Characteristics Non-Labored Spontaneous Non-Labored Spontaneous Respiratory Depth Normal Normal Respiratory Pattern Regular Regular Blood Pressure 134/84 Blood Pressure [Right Arm] 139/72 Blood Pressure Mean 100 Blood Pressure Mean [Right Arm] 94 Blood Pressure Position Lying Blood Pressure Position [Right Arm] Lying Pulse Oximetry 98 97 Oxygen Delivery Method Room Air Room Air Sepsis Recent Fever Within 48 Hours No Sepsis New/Unexplained Change in Mental Status N/A Sepsis Action Taken by Nursing No Action Required Home Medications Current Medication List: was personally reviewed by me Laboratory Data Attestation: I reviewed the patient's lab results. Result diagrams: 10/24/20 17:51 10/24/20 17:51 Lab Results 10/24/20 10/24/20 10/24/20 Range/Units 17:28 17:28 17:51 WBC 7.43 (4.8-10.8) K/uL RBC 5.89 (4.7-6.1) M/uL Hgb 18.0 (14.0-18.0) g/dL Hct 52.3 H (42-52) % MCV 88.8 (80-100) fL MCH 30.6 (25-34) pg MCHC 34.4 (32-36) g/dL RDW Std Deviation 42.4 (36.4-46.3) fL RDW Coeff of Ashwin 13.0 (11.5-14.5) % Plt Count 118 L (130-400) K/uL MPV 12.0 H (7.4-10.4) fL Immature Gran % (Auto) 0.1 % Neut % (Auto) 60.3 % Lymph % (Auto) 27.1 % [place] % (Auto) 10.4 % Eos % (Auto) 1.7 % Baso % (Auto) 0.4 % Neut # (Auto) 4.48 (1.4-6.5) K/uL Lymph # (Auto) 2.01 (1.2-3.4) K/uL [place] # (Auto) 0.77 H (0.11-0.59) K/uL Eos # (Auto) 0.13 (0-0.5) K/uL Baso # (Auto) 0.03 (0-0.2) K/uL Immature Gran # (Auto) 0.01 (0.00-0.02) K/uL Platelet Estimate Decreased L (Normal) Sodium (136-145) mmol/L Potassium (3.5-5.1) mmol/L Chloride (98-107) mmol/L Carbon Dioxide (21-32) mmol/L Anion Gap (3-11) BUN (7-18) mg/dl Creatinine (0.6-1.4) mg/dl Est Cr Clr Drug Dosing ml/min Est GFR ( Amer) ml/min Est GFR (Non-Af Amer) ml/min BUN/Creatinine Ratio (10-20) Glucose (70-99) mg/dl Calcium (8.5-10.1) mg/dl Total Bilirubin (0.2-1) mg/dl AST (15-37) U/L ALT (12-78) U/L Alkaline Phosphatase (45-117) U/L Total Protein (6.4-8.2) gm/dl Albumin (3.4-5.0) gm/dl Globulin (2.5-4.0) gm/dl Albumin/Globulin Ratio (0.9-2) TSH (0.300-4.500) uIu/ml Urine Color Yellow Urine Appearance Clear (Clear) Urine pH 6.5 (4.5-7.5) Ur Specific [place] 1.024 (1.000-1.030) Urine Protein 1+ H (Negative) Urine Glucose (UA) Negative (Negative) Urine Ketones Trace H (Negative) Urine Blood Negative (Negative) Urine Nitrite Negative (Negative) Urine Bilirubin Negative (Negative) Urine Urobilinogen Negative (Negative) Ur Leukocyte Esterase Negative (Negative) Urine WBC (Auto) 1-5 (0-5) /hpf Urine RBC (Auto) 0-4 (0-4) /hpf U Hyaline Cast (Auto) 0 (0-5) /lpf U Epithel Cells (Auto) 0-5 (0-5) /lpf Urine Bacteria (Auto) Negative (Negative) Salicylates (2.8-20) mg/dl Urine Opiates Screen Neg (Neg) Ur Methadone, Qual Neg (Neg) Acetaminophen (10-30) ug/ml Urine Barbiturates Neg (Neg) Ur Phencyclidine (PCP) Neg (Neg) U Amphetamin/Meth Scrn Neg (Neg) MDMA (Ecstasy) Screen Neg (Neg) U Benzodiazepines Scrn Neg (Neg) Ur Cocaine Metabolite Neg (Neg) U Marijuana (THC) Screen Pos H (Neg) Ethyl Alcohol mg/dL (0-3) mg/dl COVID-19 Eval Order 10/24/20 10/24/20 10/24/20 Range/Units 17:51 17:51 17:51 WBC (4.8-10.8) K/uL RBC (4.7-6.1) M/uL Hgb (14.0-18.0) g/dL Hct (42-52) % MCV (80-100) fL MCH (25-34) pg MCHC (32-36) g/dL RDW Std Deviation (36.4-46.3) fL RDW Coeff of Ashwin (11.5-14.5) % Plt Count (130-400) K/uL MPV (7.4-10.4) fL Immature Gran % (Auto) % Neut % (Auto) % Lymph % (Auto) % [place] % (Auto) % Eos % (Auto) % Baso % (Auto) % Neut # (Auto) (1.4-6.5) K/uL Lymph # (Auto) (1.2-3.4) K/uL [place] # (Auto) (0.11-0.59) K/uL Eos # (Auto) (0-0.5) K/uL Baso # (Auto) (0-0.2) K/uL Immature Gran # (Auto) (0.00-0.02) K/uL Platelet Estimate (Normal) Sodium 141 (136-145) mmol/L Potassium 3.8 (3.5-5.1) mmol/L Chloride 107 (98-107) mmol/L Carbon Dioxide 29 (21-32) mmol/L Anion Gap 5.0 (3-11) BUN 16 (7-18) mg/dl Creatinine 1.12 (0.6-1.4) mg/dl Est Cr Clr Drug Dosing 90.8 ml/min Est GFR ( Amer) 106.0 ml/min Est GFR (Non-Af Amer) 91.5 ml/min BUN/Creatinine Ratio 14.5 (10-20) Glucose 78 (70-99) mg/dl Calcium 9.2 (8.5-10.1) mg/dl Total Bilirubin 0.8 (0.2-1) mg/dl AST 14 L (15-37) U/L ALT 19 (12-78) U/L Alkaline Phosphatase 68 (45-117) U/L Total Protein 7.1 (6.4-8.2) gm/dl Albumin 4.5 (3.4-5.0) gm/dl Globulin 2.6 (2.5-4.0) gm/dl Albumin/Globulin Ratio 1.7 (0.9-2) TSH 2.050 (0.300-4.500) uIu/ml Urine Color Urine Appearance (Clear) Urine pH (4.5-7.5) Ur Specific [place] (1.000-1.030) Urine Protein (Negative) Urine Glucose (UA) (Negative) Urine Ketones (Negative) Urine Blood (Negative) Urine Nitrite (Negative) Urine Bilirubin (Negative) Urine Urobilinogen (Negative) Ur Leukocyte Esterase (Negative) Urine WBC (Auto) (0-5) /hpf Urine RBC (Auto) (0-4) /hpf U Hyaline Cast (Auto) (0-5) /lpf U Epithel Cells (Auto) (0-5) /lpf Urine Bacteria (Auto) (Negative) Salicylates < 1.7 L (2.8-20) mg/dl Urine Opiates Screen (Neg) Ur Methadone, Qual (Neg) Acetaminophen < 2 L (10-30) ug/ml Urine Barbiturates (Neg) Ur Phencyclidine (PCP) (Neg) U Amphetamin/Meth Scrn (Neg) MDMA (Ecstasy) Screen (Neg) U Benzodiazepines Scrn (Neg) Ur Cocaine Metabolite (Neg) U Marijuana (THC) Screen (Neg) Ethyl Alcohol mg/dL < 3.0 (0-3) mg/dl COVID-19 Eval Order 10/24/20 Range/Units 23:18 WBC (4.8-10.8) K/uL RBC (4.7-6.1) M/uL Hgb (14.0-18.0) g/dL Hct (42-52) % MCV (80-100) fL MCH (25-34) pg MCHC (32-36) g/dL RDW Std Deviation (36.4-46.3) fL RDW Coeff of Ashwin (11.5-14.5) % Plt Count (130-400) K/uL MPV (7.4-10.4) fL Immature Gran % (Auto) % Neut % (Auto) % Lymph % (Auto) % [place] % (Auto) % Eos % (Auto) % Baso % (Auto) % Neut # (Auto) (1.4-6.5) K/uL Lymph # (Auto) (1.2-3.4) K/uL [place] # (Auto) (0.11-0.59) K/uL Eos # (Auto) (0-0.5) K/uL Baso # (Auto) (0-0.2) K/uL Immature Gran # (Auto) (0.00-0.02) K/uL Platelet Estimate (Normal) Sodium (136-145) mmol/L Potassium (3.5-5.1) mmol/L Chloride (98-107) mmol/L Carbon Dioxide (21-32) mmol/L Anion Gap (3-11) BUN (7-18) mg/dl Creatinine (0.6-1.4) mg/dl Est Cr Clr Drug Dosing ml/min Est GFR ( Amer) ml/min Est GFR (Non-Af Amer) ml/min BUN/Creatinine Ratio (10-20) Glucose (70-99) mg/dl Calcium (8.5-10.1) mg/dl Total Bilirubin (0.2-1) mg/dl AST (15-37) U/L ALT (12-78) U/L Alkaline Phosphatase (45-117) U/L Total Protein (6.4-8.2) gm/dl Albumin (3.4-5.0) gm/dl Globulin (2.5-4.0) gm/dl Albumin/Globulin Ratio (0.9-2) TSH (0.300-4.500) uIu/ml Urine Color Urine Appearance (Clear) Urine pH (4.5-7.5) Ur Specific [place] (1.000-1.030) Urine Protein (Negative) Urine Glucose (UA) (Negative) Urine Ketones (Negative) Urine Blood (Negative) Urine Nitrite (Negative) Urine Bilirubin (Negative) Urine Urobilinogen (Negative) Ur Leukocyte Esterase (Negative) Urine WBC (Auto) (0-5) /hpf Urine RBC (Auto) (0-4) /hpf U Hyaline Cast (Auto) (0-5) /lpf U Epithel Cells (Auto) (0-5) /lpf Urine Bacteria (Auto) (Negative) Salicylates (2.8-20) mg/dl Urine Opiates Screen (Neg) Ur Methadone, Qual (Neg) Acetaminophen (10-30) ug/ml Urine Barbiturates (Neg) Ur Phencyclidine (PCP) (Neg) U Amphetamin/Meth Scrn (Neg) MDMA (Ecstasy) Screen (Neg) U Benzodiazepines Scrn (Neg) Ur Cocaine Metabolite (Neg) U Marijuana (THC) Screen (Neg) Ethyl Alcohol mg/dL (0-3) mg/dl COVID-19 Eval Order Covid19 [facility]Now [facility] Discharge Plan Visit Data Chief Complaint: Mental Health Evaluation Stated Complaint: MENTAL HEALTH EVALUATION ED Provider: Nicanor Burr Discharge Problem: Suicidal ideation, Bipolar disorder Forms Stand Alone Forms: My [facility], Suicide Prevention Resources Prescriptions Prescriptions: No Action No Known Home Medications RF: 0 Discharge Problem: Bipolar disorder Qualifiers: Active/Remission status: remission status unspecified Qualified Code(s): F31.9 - Bipolar disorder, unspecified
[2020-10-24 17:51] LABS: Appearance Urine Clear (Clear); Bacteria Urine Automated Negative (Negative); Bilirubin Urine Negative (Negative); Blood Urine Negative (Negative); Cast Urine Automated 0 /lpf (0-5); Color Urine Yellow; Epithelial Cell Urine Auto 0-5 /lpf (0-5); Glucose Urine UA Negative (Negative); Ketones Urine Trace (Negative); Leukocyte Esterase Urine Negative (Negative); Nitrite Urine Negative (Negative); Protein Urine 1+ (Negative); RBC Urine Automated 0-4 /hpf (0-4); Specific Gravity Urine 1.024 (1.000-1.030); Urobilinogen Urine Negative (Negative); pH Urine 6.5 (4.5-7.5)
[2020-10-24 18:31] LABS: Amphetamines+Metham, Urine Neg (Neg); Barbiturates, Urine Neg (Neg); Benzodiazepine, Urine Neg (Neg); Cocaine, Urine Neg (Neg); MDMA (Ecstacy), Urine Neg (Neg); Methadone, Urine Neg (Neg); Opiate, Urine Neg (Neg); Phencyclidine, Urine Neg (Neg)
[2020-10-24 18:44] LABS: Albumin Level 4.5 gm/dl (3.4-5.0); BUN Creatinine Ratio 14.5 (10-20); Calcium 9.2 mg/dl (8.5-10.1); Creatinine Clr Calc Pharmacy 90.8 ml/min; Est GFR (Non-African American) 91.5 ml/min; Potassium 3.8 mmol/L (3.5-5.1)
[2020-10-24 18:53] LABS: Albumin Globulin Ratio 1.7 (0.9-2); Bilirubin,Total 0.8 mg/dl (0.2-1); Globulin 2.6 gm/dl (2.5-4.0); Thyroid Stimulating Hormone 2.05 uIu/ml (0.300-4.500); Total Protein 7.1 gm/dl (6.4-8.2)
[2020-10-24 19:16] LABS: Acetaminophen < 2 ug/ml (10-30); Salicylate < 1.7 mg/dl (2.8-20)
[2020-10-24 21:39] LABS: Hematocrit (blood only) 52.3 % (42-52); Mean Corpuscular Hemoglobin 30.6 pg (25-34); Mean Corpuscular Hgb Conc 34.4 g/dL (32-36); Mean Corpuscular Volume 88.8 fL (80-100); Platelet Count 118 K/uL (130-400); RDW Standard Deviation 42.4 fL (36.4-46.3); Red Blood Count 5.89 M/uL (4.7-6.1); White Blood Count 7.43 K/uL (4.8-10.8)
[2020-10-24 21:40] LABS: Basophils # (auto) 0.03 K/uL (0-0.2); Basophils % (auto) 0.4 %; Eosinophils # (auto) 0.13 K/uL (0-0.5); Eosinophils % (auto) 1.7 %; Immature Granulocytes # (auto) 0.01 K/uL (0.00-0.02); Immature Granulocytes % (auto) 0.1 %; Lymphocytes # (auto) 2.01 K/uL (1.2-3.4); Lymphocytes % (auto) 27.1 %; Monocytes # (auto) 0.77 K/uL (0.11-0.59); Monocytes % (auto) 10.4 %; Neutrophils # (auto) 4.48 K/uL (1.4-6.5); Neutrophils % (auto) 60.3 %; Platelet Estimate Decreased (Normal)
--- NOTE | 2020-10-24 23:53 | Emergency Department Note ---
ED Visit Note ED Physician Sign Out Note: 25 yr old suicidal male with concerning texts to his aunt. History of suicide attempt and father with suicide a few years ago around this date. Patient on no medications and he has history of Bipolar and Schizophrenia. Here on 201 and awaiting placement when signed out to me by Dr Ferguson. Patient stable, no distress and accepted to [address] [place] [address] for further management. Nicanor Burr MD : Bipolar disorder Qualifiers: Active/Remission status: remission status unspecified Qualified Code(s): F31.9 - Bipolar disorder, unspecified
[2020-10-25] MEDS ORDERED: ALUMINUM/MAGNESIUM SUSP 30 ML UDC PO PRN (01:33)
[2020-10-25] MEDS ORDERED: ACETAMINOPHEN 325 MG TAB PO PRN (01:33)
[2020-10-25] MEDS ORDERED: BISMUTH SUBSALICYLATE LIQD 236 ML PO PRN (01:33)
[2020-10-25] MEDS ORDERED: SODIUM CHLORIDE 0.65% NA SOLN 45 ML (OCEAN) PRN (01:33)
[2020-10-25] MEDS ORDERED: hydrOXYzine HCl 25 MG TAB PO PRN ×2 (01:33)
[2020-10-25] MEDS ORDERED: MAGNESIUM HYDROXIDE SUSP 30 ML UDC PO PRN (01:33)
--- NOTE | 2020-10-25 15:26 | History & Physical ---
Date of Service October 25, 2020 Impression / Recommendations Impression 25-year-old male presenting following the anniversary of his father's suicide with suicidal ideation. Diagnosis will remain at [facility]D for now, even though patient does have a history of bipolar, he is denying any prior manic episodes or manic symptoms, and has been off medications without significant issues for over 2 years. His most recent suicidal ideation which prompted this admission seems to be situational and related to the negative thoughts and PTSD from his father's . Patient may benefit from psychiatric psychiatric medications although at this time remains resistant to take due to prior poor experience with efficacy and side effects. Of note patient does have polycythemia vera, which is likely responsible for his blindness and may play a part in his depression as polycythemia vera is associated with neuropsychiatric sequela including increased rate of anxiety and depression. Patient is also admitting to marijuana use although has conflicting reports about the quantity and severity of his use. Initially patient was reluctant to acknowledge this as an issue, but then even by the end of the conversation was stating that he was willing to take a break from using. Unclear to what extent this has been contributing to his mood instability. (1) Suicidal ideation: The patient was admitted to the [facility] ([facility] mental health unit) on every 15 minute checks (behavioral with suicide precautions for safety. The patient will participate in group, recreational, and milieu therapies and will be offered additional individual and family sessions as clinically appropriate. We will continue to discuss the potential for medication options, patient refusing medication at this time. We will offer the patient as needed hydroxyzine 50mg qhs to help stabilize his sleeping schedule while on the unit. (2) Cannabis use disorder, moderate, dependence: The patient's use history suggests problematic substance use. Brief intervention was offered and accepted. Intervention was greater than 5 min in length and included assessing readiness to quit, advice on how to reduce or abstain, and to set a specific goal for this hospitalization. shell worker will also assist in anticipating barriers to sobriety and in problem-solving for solutions to those problems while arranging for referral to appropriate treatment. The patient is in precontemplation stage with regards to transtheoretical model of change. The patient is advised to decrease consumption due to depressant effects and risk of interaction with prescription medications. The patient agreed to consider limiting his use and will be provided with recovery materials to continue to educate self on how to cope with their condition without abusing substances. Inventory Assets Strengths: Calm demeanor Needs: Stability of mood Risk Factors Assessment Male: Yes : Yes Do You Have Access To A Gun?: No Health Problems: Yes Mental Health Diagnoses: Yes Substance Use Disorders: Yes Protective Factors Assessment Employed: No (disabled due to legal blindness (can see but not to drive)) Supportive Family: Yes Good Rapport with Provider: Yes Absence of Any Risk Factors Above: No Psychiatric History Identifying Data THERESA DALLAS is a 25-year-old M who currently [place] Step sister and step father, has a history of mood disorder, and was admitted on 10/25/20 00:30 on a 201 voluntary commitment for depression with SI. Chief Complaint "I had been feeling suicidal". History of Present Illness As per manager law " Met with patient bedside to complete mental health evaluation. Patient stated he "had a bad couple of days." Patient stated October 17 is the anniversary of the day his father completed suicide by hanging. Patient stated he "don't like to talk about it." Patient admits to sending text messages to aunt. Patient stated he is having intermittent thoughts of suicide for the past several days. Patient reports past suicide attempt in 2019 by significantly cutting both of his arms numerous times which required sutures. Scarring noted on both arms from prior attempt. Patient denies any SIB. Patient denies hallucinations, paranoia, or delusional thinking. Patient stated he sleeps "pretty good but hard to fall asleep." Patient stated he has a "healthy appetite." Patient denies any legal issues. 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 Patient stated he can see well enough to get around but cannot drive. Patient denies history of trauma or abuse. Patient denies any medical issues. Patient lives with sisters father since his mother when he was 10 years old. Patient stated he was not allowed to live with his father because "his girlfriend didn't like me which makes me angry." Patient stated he uses marijuana once a month. Patient stated he is seeking a medical marijuana card. Patient does not have any current outpatient services. Patient does not take any medication. Patient stated he stopped taking meds and seeing outpatient providers in 2018. Patient has a history of IM Abilify and Zoloft (stated he had side effects to Zoloft). Patient is agreeable with recommendation for inpatient treatment." Upon interview patient endorsed the above information is accurate. States that he first ran into mental health issues following the of his father. Sta nishant that he was admitted prior to inpatient facilities and at that time started on Zoloft and Abilify but self discontinued months later due to adverse effects including sexual, weight gain, anxious feeling, and lack of efficacy. Patient reports that since that time he has been doing okay with some mood swings which were recently worsened during this past week due to it being the anniversary of his father's . Patient is endorsing occasional trouble with sleep, difficulty with mood, difficulty with anger. He denies any hallucinations or psychotic symptoms, delusions, manic symptoms. Patient at this time unwilling to take medication because he feels that the medication side effects were worse than the benefits they gave him. He is reporting feeling better having changed his environment and taking a break from his situation. Today he is no longer acknowledging suicidal thoughts, but does acknowledge low mood and apathy. Of note patient is legally blind, has a diagnosis of polycythemia vera. Past Psychiatric History Previous Psych History: Patient has a history of several prior inpatient hospitalizations, in the context of suicidal ideation. Current Psychiatric Diagnosis: history of bipolar, PTSD Do You Have Access To A Gun?: No Describe Attempts in the Past: 2019 - significant cuts to forearms requiring sutures Past Head Trauma/Neuro History History of Concussion/Seizure: No Allergies Allergy/AdvReac Type Severity Reaction Status Date / Time No Known Allergies Allergy Verified 10/24/20 22:06 Home Medications Medication Instructions Recorded Confirmed Type No Known Home Medications 09/07/18 10/24/20 History Family History Family History of: Suicide Completion Family Mental Health History Comment: Father via hanging Alcohol History Hx of Alcohol Use Over the Past 12 Months: No AUDIT Total Score: 0 Smoking Use Have You Smoked or Used Tobacco Products in the Last 30 Days: No Smoking Status: Never smoker Substance History Hx of Prescription Med Misuse Over the Past 12 Months: No Hx of Over the Counter Med Misuse Over the Past 12 Months: No Hx of Inhalent Misuse Over the Past 12 Months: No Hx of Organic Substance Use Over the Past 12 Months: Yes (Marijuana - 1X/month) Hx of Illegal Substances/Street Drug Use Over Past 12 Months: No Problems as a Result of Past Substance Use: None Identified Personal History Living Arrangements: Home Living Arrangements Comments: Resides with step-sister and her father Highest Grade Completed: High School Graduate Marital Status: Single Number Of Children: 0 Beliefs That Will Affect Care: None Patient History Medical History Bipolar disorder Schizophrenia Suicidal ideation Surgical History No pertinent past surgical history Family History Father Suicide Social History Smoking Status: Never smoker Preferred Language: Uzbek Communication Ability: Effective Distance Learning Technician Required: No Beliefs That Will Affect Care: None Feels Safe at Home: Yes Assistive Devices: None Assistive Devices Comment: used to wear glasses, states "they don't help" Review of Systems Review of Systems: All systems reviewed & are unremarkable except as noted in HPI & below Physical Exam Psychiatric: Orientation: alert and oriented x 3 Apperance: appropriately groomed Eye Contact: + poor eye contact Patient is legally blind with significant strabismus Motor Behavior: no abnormal motor movements Speech: normal rate/rhythm/volume of speech Affect: + constricted affect Mood: + depressed mood and + anxious mood Thought Process: goal directed thought process Thought Content: reality based without delusions Suicidal Thoughts: denies suicidal thoughts Homicidal Thoughts: denies homicidal thoughts Hallucinations: no auditory hallucinations and no visual hallucinations Cognition: recent memory grossly intact Estimated Intelligence: consistent with education level Insight: + poor insight Judgement: + fair judgement Vital Signs (Past 24 Hours): Last Vital Signs Temp 36.7 C 10/25/20 06:00 Pulse 80 10/25/20 06:31 Resp 16 10/25/20 06:00 BP 116/74 10/25/20 06:31 Pulse Ox 100 10/25/20 01:35 Exam Statement: A physical exam was performed in the ER prior to admission to the unit by Dr. Burr. I accept that physical as correct/medical clearance for the inpatient physical exam. Results & Data (U) Laboratory Results Laboratory Results - last 24 hr 10/24/20 10/24/20 10/24/20 17:28 17:28 17:28 WBC RBC Hgb Hct MCV MCH MCHC RDW Std Deviation RDW Coeff of Ashwin Plt Count MPV Immature Gran % (Auto) Neut % (Auto) Lymph % (Auto) [place] % (Auto) Eos % (Auto) Baso % (Auto) Neut # (Auto) Lymph # (Auto) [place] # (Auto) Eos # (Auto) Baso # (Auto) Immature Gran # (Auto) Platelet Estimate Sodium Potassium Chloride Carbon Dioxide Anion Gap BUN Creatinine Est Cr Clr Drug Dosing Est GFR ( Amer) Est GFR (Non-Af Amer) BUN/Creatinine Ratio Glucose Calcium Total Bilirubin AST ALT Alkaline Phosphatase Total Protein Albumin Globulin Albumin/Globulin Ratio TSH Urine Color Yellow Urine Appearance Clear Urine pH 6.5 Ur Specific Concrete 1.024 Urine Protein 1+ H Urine Glucose (UA) Negative Urine Ketones Trace H Urine Blood Negative Urine Nitrite Negative Urine Bilirubin Negative Urine Urobilinogen Negative Ur Leukocyte Esterase Negative Urine WBC (Auto) 1-5 Urine RBC (Auto) 0-4 U Hyaline Cast (Auto) 0 U Epithel Cells (Auto) 0-5 Urine Bacteria (Auto) Negative Salicylates Urine Opiates Screen Neg Ur Methadone, Qual Neg Acetaminophen Urine Barbiturates Neg Ur Phencyclidine (PCP) Neg U Amphetamin/Meth Scrn Neg MDMA (Ecstasy) Screen Neg U Benzodiazepines Scrn Neg Ur Cocaine Metabolite Neg U Marijuana (THC) Screen Pos H U Marijuana THC Carboxy Pending Drug Screen Comment Pending Ethyl Alcohol mg/dL COVID-19 Eval Order SARS-CoV-2, RNA, NAAT 10/24/20 10/24/20 10/24/20 17:51 17:51 17:51 WBC 7.43 RBC 5.89 Hgb 18.0 Hct 52.3 H MCV 88.8 MCH 30.6 MCHC 34.4 RDW Std Deviation 42.4 RDW Coeff of Ashwin 13.0 Plt Count 118 L MPV 12.0 H Immature Gran % (Auto) 0.1 Neut % (Auto) 60.3 Lymph % (Auto) 27.1 [place] % (Auto) 10.4 Eos % (Auto) 1.7 Baso % (Auto) 0.4 Neut # (Auto) 4.48 Lymph # (Auto) 2.01 [place] # (Auto) 0.77 H Eos # (Auto) 0.13 Baso # (Auto) 0.03 Immature Gran # (Auto) 0.01 Platelet Estimate Decreased L Sodium 141 Potassium 3.8 Chloride 107 Carbon Dioxide 29 Anion Gap 5.0 BUN 16 Creatinine 1.12 Est Cr Clr Drug Dosing 90.8 Est GFR ( Amer) 106.0 Est GFR (Non-Af Amer) 91.5 BUN/Creatinine Ratio 14.5 Glucose 78 Calcium 9.2 Total Bilirubin 0.8 AST 14 L ALT 19 Alkaline Phosphatase 68 Total Protein 7.1 Albumin 4.5 Globulin 2.6 Albumin/Globulin Ratio 1.7 TSH 2.050 Urine Color Urine Appearance Urine pH Ur Specific Concrete Urine Protein Urine Glucose (UA) Urine Ketones Urine Blood Urine Nitrite Urine Bilirubin Urine Urobilinogen Ur Leukocyte Esterase Urine WBC (Auto) Urine RBC (Auto) U Hyaline Cast (Auto) U Epithel Cells (Auto) Urine Bacteria (Auto) Salicylates < 1.7 L Urine Opiates Screen Ur Methadone, Qual Acetaminophen < 2 L Urine Barbiturates Ur Phencyclidine (PCP) U Amphetamin/Meth Scrn MDMA (Ecstasy) Screen U Benzodiazepines Scrn Ur Cocaine Metabolite U Marijuana (THC) Screen U Marijuana THC Carboxy Drug Screen Comment Ethyl Alcohol mg/dL COVID-19 Eval Order SARS-CoV-2, RNA, NAAT 10/24/20 10/24/20 10/24/20 17:51 23:18 23:18 WBC RBC Hgb Hct MCV MCH MCHC RDW Std Deviation RDW Coeff of Ashwin Plt Count MPV Immature Gran % (Auto) Neut % (Auto) Lymph % (Auto) [place] % (Auto) Eos % (Auto) Baso % (Auto) Neut # (Auto) Lymph # (Auto) [place] # (Auto) Eos # (Auto) Baso # (Auto) Immature Gran # (Auto) Platelet Estimate Sodium Potassium Chloride Carbon Dioxide Anion Gap BUN Creatinine Est Cr Clr Drug Dosing Est GFR ( Amer) Est GFR (Non-Af Amer) BUN/Creatinine Ratio Glucose Calcium Total Bilirubin AST ALT Alkaline Phosphatase Total Protein Albumin Globulin Albumin/Globulin Ratio TSH Urine Color Urine Appearance Urine pH Ur Specific Concrete Urine Protein Urine Glucose (UA) Urine Ketones Urine Blood Urine Nitrite Urine Bilirubin Urine Urobilinogen Ur Leukocyte Esterase Urine WBC (Auto) Urine RBC (Auto) U Hyaline Cast (Auto) U Epithel Cells (Auto) Urine Bacteria (Auto) Salicylates Urine Opiates Screen Ur Methadone, Qual Acetaminophen Urine Barbiturates Ur Phencyclidine (PCP) U Amphetamin/Meth Scrn MDMA (Ecstasy) Screen U Benzodiazepines Scrn Ur Cocaine Metabolite U Marijuana (THC) Screen U Marijuana THC Carboxy Drug Screen Comment Ethyl Alcohol mg/dL < 3.0 COVID-19 Eval [facility] SARS-CoV-2, RNA, NAAT NEGATIVE Current Inpatient Medications Current Inpatient Medications: Current Inpatient Medications Acetaminophen (Acetaminophen 325 Mg Tab) 650 mg PO Q4H PRN PRN Reason: Headache or Minor Fever Stop: 11/24/20 01:32 Al Hydrox/Mg Hydrox/Simethicone (Aluminum/Magnesium Susp 30 Ml Udc) 30 ml PO Q4H PRN PRN Reason: GI Upset Stop: 11/24/20 01:32 Bismuth Subsalicylate (Bismuth Subsalicylate Liqd 236 Ml) 15 ml PO PRN PRN PRN Reason: Loose Stool Stop: 11/24/20 01:32 Hydroxyzine HCl (Hydroxyzine Hcl 25 Mg Tab) 50 mg PO HSZ PRN PRN Reason: Insomnia Stop: 11/24/20 01:32 Hydroxyzine HCl (Hydroxyzine Hcl 25 Mg Tab) 25 mg PO Q4H PRN PRN Reason: Anxiety Stop: 11/24/20 01:32 Magnesium Hydroxide (Magnesium Hydroxide Susp 30 Ml Udc) 30 ml PO DAILY PRN PRN Reason: Constipation Stop: 11/24/20 01:32 Sodium Chloride (Sodium Chloride 0.65% Na Soln 45 Ml (Door)) 1 - 2 sprays NA PRN PRN PRN Reason: Nasal Dryness/Congestion Stop: 11/24/20 01:32
[2020-10-26] MEDS: ESCITALOPRAM OXALATE 10 MG TAB PO SCH (10:26)
--- NOTE | 2020-10-26 10:38 | Psychiatric Progress Note ---
Date of Service October 26, 2020 Impression / Recommendations Impression 25-year-old male presenting following the anniversary of his father's suicide with suicidal ideation. Diagnosis will remain at MDD for now, even though patient does have a history of bipolar, he is denying any prior manic episodes or manic symptoms, and has been off medications without significant issues for over 2 years. His most recent suicidal ideation which prompted this admission seems to be situational and related to the negative thoughts and PTSD from his father's . Patient may benefit from psychiatric psychiatric medications although at this time remains resistant to take due to prior poor experience with efficacy and side effects. Of note patient does have polycythemia vera, which is likely responsible for his blindness and may play a part in his depression as polycythemia vera is associated with neuropsychiatric sequela including increased rate of anxiety and depression. Patient is also admitting to marijuana use although has conflicting reports about the quantity and severity of his use. Initially patient was reluctant to acknowledge this as an issue, but then even by the end of the conversation was stating that he was willing to take a break from using. Unclear to what extent this has been contributing to his mood instability. (1) Suicidal ideation: The patient was admitted to the [facility] ([facility] mental health unit) on every 15 minute checks (behavioral with suicide precautions for safety. The patient will participate in group, recreational, and milieu therapies and will be offered additional individual and family sessions as clinically appropriate. 10/26/20--Will start 10mg of Lexapro today, patient already reporting improvement of mood which he attributes to increased social interaction. 10/25/20--We will continue to discuss the potential for medication options, patient refusing medication at this time. We will offer the patient as needed hydroxyzine 50mg qhs to help stabilize his sleeping schedule while on the unit. (2) Cannabis use disorder, moderate, dependence: The patient's use history suggests problematic substance use. Brief intervention was offered and accepted. Intervention was greater than 5 min in length and included assessing readiness to quit, advice on how to reduce or abstain, and to set a specific goal for this hospitalization. tray service worker will also assist in anticipating barriers to sobriety and in problem-solving for solutions to those problems while arranging for referral to appropriate treatment. The patient is in precontemplation stage with regards to transtheoretical model of change. The patient is advised to decrease consumption due to depressant effects and risk of interaction with prescription medications. The patient agreed to consider limiting his use and will be provided with recovery materials to continue to educate self on how to cope with their condition without abusing substances. Inventory Assets Strengths: Calm demeanor Needs: Stability of mood Risk Factors Assessment Male: Yes : Yes Do You Have Access To A Gun?: No Health Problems: Yes Mental Health Diagnoses: Yes Substance Use Disorders: Yes Protective Factors Assessment Employed: No (disabled due to legal blindness (can see but not to drive)) Supportive Family: Yes Good Rapport with Provider: Yes Absence of Any Risk Factors Above: No Interval History Chief Complaint "I'm okay". 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 Arrived at approximately 0059. Meal Information Percent Meal Consumed - Breakfast: 100 Percent Meal Consumed - Lunch: 100 Percent Meal Consumed - Dinner: 100 Subjective Subjective Patient was seen & assessed and interval progress reviewed with treatment team nursing and social work Patient reports a decent night of sleep estimated to be approximately 6.5 hours. Has an appetite and is able to eat his meals without issue. Today patient was further questioned regarding his mood and the text messages he had sent when reporting his suicidal ideation to his aunt. He states that he often will become disproportionately angry at times. HE is agreeable to trial of Lexapro medication to target low mood. I spent 30 minutes with the patient, 50% of which was dedicated to counselling and coordination of care. Physical Exam Psychiatric Orientation: alert and oriented x 3 Apperance: appropriately groomed Eye Contact: + poor eye contact Motor Behavior: no abnormal motor movements Speech: normal rate/rhythm/volume of speech Affect: + constricted affect Mood: + depressed mood and + anxious mood Thought Process: goal directed thought process Thought Content: reality based without delusions Suicidal Thoughts: denies suicidal thoughts Homicidal Thoughts: denies homicidal thoughts Hallucinations: no auditory hallucinations and no visual hallucinations Cognition: recent memory grossly intact Estimated Intelligence: consistent with education level Insight: + poor insight Judgement: + fair judgement Vital Signs (Past 24 Hours) Last Vital Signs Temp 36.5 C 10/26/20 06:34 Pulse 69 10/26/20 06:35 Resp 16 10/26/20 06:34 BP 122/73 10/26/20 06:35 Pulse Ox 100 10/25/20 01:35 Results & Data ([facility]) Current Inpatient Medications Current Inpatient Medications: Current Inpatient Medications Acetaminophen (Acetaminophen 325 Mg Tab) 650 mg PO Q4H PRN PRN Reason: Headache or Minor Fever Stop: 11/24/20 01:32 Al Hydrox/Mg Hydrox/Simethicone (Aluminum/Magnesium Susp 30 Ml Udc) 30 ml PO Q4H PRN PRN Reason: GI Upset Stop: 11/24/20 01:32 Bismuth Subsalicylate (Bismuth Subsalicylate Liqd 236 Ml) 15 ml PO PRN PRN PRN Reason: Loose Stool Stop: 11/24/20 01:32 Escitalopram Oxalate (Escitalopram Oxalate 10 Mg Tab) 10 mg PO QAM FRED Stop: 11/25/20 09:59 Last Admin: 10/26/20 10:26 Dose: 10 mg Documented by: Hydroxyzine HCl (Hydroxyzine Hcl 25 Mg Tab) 50 mg PO HSZ PRN PRN Reason: Insomnia Stop: 11/24/20 01:32 Hydroxyzine HCl (Hydroxyzine Hcl 25 Mg Tab) 25 mg PO Q4H PRN PRN Reason: Anxiety Stop: 11/24/20 01:32 Magnesium Hydroxide (Magnesium Hydroxide Susp 30 Ml Udc) 30 ml PO DAILY PRN PRN Reason: Constipation Stop: 11/24/20 01:32 Sodium Chloride (Sodium Chloride 0.65% Na Soln 45 Ml ([place])) 1 - 2 sprays NA PRN PRN PRN Reason: Nasal Dryness/Congestion Stop: 11/24/20 01:32 Mental Health & Subst Abuse Tx Therapist Name of Therapist: None - Hx in the past Tape Cutting Machine Operator Name of Tape Cutting Machine Operator: None - Hx in the past
[2020-10-27] MEDS: ESCITALOPRAM OXALATE 10 MG TAB PO SCH (09:23)
--- NOTE | 2020-10-27 11:19 | Discharge Summary ---
Date of Service October 27, 2020 History of Present Illness As per onsite case manager " Met with patient bedside to complete mental health evaluation. Patient stated he "had a bad couple of days." Patient stated October 17 is the anniversary of the day his father completed suicide by hanging. Patient stated he "don't like to talk about it." Patient admits to sending text messages to aunt. Patient stated he is having intermittent thoughts of suicide for the past several days. Patient reports past suicide attempt in 2019 by significantly cutting both of his arms numerous times which required sutures. Scarring noted on both arms from prior attempt. Patient denies any SIB. Patient denies hallucinations, paranoia, or delusional thinking. Patient stated he sleeps "pretty good but hard to fall asleep." Patient stated he has a "healthy appetite." Patient denies any legal issues. 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 Patient stated he can see well enough to get around but cannot drive. Patient denies history of trauma or abuse. Patient denies any medical issues. Patient lives with sisters father since his mother when he was 10 years old. Patient stated he was not allowed to live with his father because "his girlfriend didn't like me which makes me angry." Patient stated he uses marijuana once a month. Patient stated he is seeking a medical marijuana card. Patient does not have any current outpatient services. Patient does not take any medication. Patient stated he stopped taking meds and seeing outpatient providers in 2018. Patient has a history of IM Abilify and Zoloft (stated he had side effects to Zoloft). Patient is agreeable with recommendation for inpatient treatment." Upon interview patient endorsed the above information is accurate. States that he first ran into mental health issues following the of his father. Stated that he was admitted prior to inpatient facilities and at that time started on Zoloft and Abilify but self discontinued months later due to adverse effects including sexual, weight gain, anxious feeling, and lack of efficacy. Patient reports that since that time he has been doing okay with some mood swings which were recently worsened during this past week due to it being the anniversary of his father's . Patient is endorsing occasional trouble with sleep, difficulty with mood, difficulty with anger. He denies any hallucinations or psychotic symptoms, delusions, manic symptoms. Patient at this time unwilling to take medication because he feels that the medication side effects were worse than the benefits they gave him. He is reporting feeling better having changed his environment and taking a break from his situation. Today he is no longer acknowledging suicidal thoughts, but does acknowledge low mood and apathy. Of note patient is legally blind, has a diagnosis of polycythemia vera. Physical Exam Psychiatric Orientation: alert and oriented x 3 Apperance: appropriately groomed Eye Contact: + poor eye contact Patient is legally blind with significant strabismus Motor Behavior: no abnormal motor movements Speech: normal rate/rhythm/volume of speech Affect: euthymic affect Mood: no depressed mood and no anxious mood Thought Process: goal directed thought process Thought Content: reality based without delusions Suicidal Thoughts: denies suicidal thoughts Homicidal Thoughts: denies homicidal thoughts Hallucinations: no auditory hallucinations and no visual hallucinations Cognition: recent memory grossly intact Estimated Intelligence: consistent with education level Insight: + fair insight Judgement: + fair judgement Vital Signs (Past 24 Hours) Last Vital Signs Temp 36.7 C 10/27/20 08:42 Pulse 80 10/27/20 08:42 Resp 16 10/27/20 08:42 BP 116/74 10/27/20 08:42 Pulse Ox 100 10/27/20 08:42 Principal Diagnosis Mood disorder Psychiatric Data See daily stay summary. In short, safety was maintained, and the patient was cooperative with care. Medication changes included initiation of Escitalopram and they tolerated this well. A family session was held and safety plan was completed prior to discharge. Day of Discharge Assessment Today the patient voices readiness for discharge. They note improvement in mood and deny thoughts to harm self or others. Thoughts remain organized and they are improved from admission. There is no evidence of psychosis. They agree to take medications as prescribed and keep follow-up appointments. They are stable for discharge to outpatient level of care. Transition of Care Transition Of Care Record: was reviewed with the patient Advance Directives Advance Directives Information Provided: Yes Advance Directives: No Mental Health Advance Directive: No Advance Directives on File: No Living Will: No Power of Spot Welder: No Advance Directives Reason:: Declines as Mental Health Visit. Risk Factors Assessment Male: Yes : Yes Do You Have Access To A Gun?: No Health Problems: Yes Mental Health Diagnoses: Yes Substance Use Disorders: Yes Previous Attempt: No Previous Psychiatric Hospitalization: Yes Hopelessness: No Protective Factors Assessment : No Responsible for Young Children: No Employed: No (disabled due to legal blindness (can see but not to drive)) Supportive Family: Yes Good Rapport with Provider: Yes Absence of Any Risk Factors Above: No Tobacco Cessation at Discharge Tobacco Cessation Medication Prescribed at Discharge: Offered & Pt Refused Total Time Total Time Spent: Greater Than 30 Minutes Total Time Includes: Examination of the patient, Discharge Planning and Medication Reconciliation Discharge Data Lab Results 10/24/20 10/24/20 10/24/20 17:28 17:28 17:51 WBC 7.43 RBC 5.89 Hgb 18.0 Hct 52.3 H MCV 88.8 MCH 30.6 MCHC 34.4 RDW Std Deviation 42.4 RDW Coeff of [place] 13.0 Plt Count 118 L MPV 12.0 H Immature Gran % (Auto) 0.1 Neut % (Auto) 60.3 Lymph % (Auto) 27.1 [place] % (Auto) 10.4 Eos % (Auto) 1.7 Baso % (Auto) 0.4 Neut # (Auto) 4.48 Lymph # (Auto) 2.01 [place] # (Auto) 0.77 H Eos # (Auto) 0.13 Baso # (Auto) 0.03 Immature Gran # (Auto) 0.01 Platelet Estimate Decreased L Sodium Potassium Chloride Carbon Dioxide Anion Gap BUN Creatinine Est Cr Clr Drug Dosing Est GFR ( Amer) Est GFR (Non-Af Amer) BUN/Creatinine Ratio Glucose Calcium Total Bilirubin AST ALT Alkaline Phosphatase Total Protein Albumin Globulin Albumin/Globulin Ratio TSH Urine Color Yellow Urine Appearance Clear Urine pH 6.5 Ur Specific [place] 1.024 Urine Protein 1+ H Urine Glucose (UA) Negative Urine Ketones Trace H Urine Blood Negative Urine Nitrite Negative Urine Bilirubin Negative Urine Urobilinogen Negative Ur Leukocyte Esterase Negative Urine WBC (Auto) 1-5 Urine RBC (Auto) 0-4 U Hyaline Cast (Auto) 0 U Epithel Cells (Auto) 0-5 Urine Bacteria (Auto) Negative Salicylates Urine Opiates Screen Neg Ur Methadone, Qual Neg Acetaminophen Urine Barbiturates Neg Ur Phencyclidine (PCP) Neg U Amphetamin/Meth Scrn Neg MDMA (Ecstasy) Screen Neg U Benzodiazepines Scrn Neg Ur Cocaine Metabolite Neg U Marijuana (THC) Screen Pos H Ethyl Alcohol mg/dL COVID-19 Eval Order SARS-CoV-2, RNA, NAAT 10/24/20 10/24/20 10/24/20 17:51 17:51 17:51 WBC RBC Hgb Hct MCV MCH MCHC RDW Std Deviation RDW Coeff of [place] Plt Count MPV Immature Gran % (Auto) Neut % (Auto) Lymph % (Auto) [place] % (Auto) Eos % (Auto) Baso % (Auto) Neut # (Auto) Lymph # (Auto) [place] # (Auto) Eos # (Auto) Baso # (Auto) Immature Gran # (Auto) Platelet Estimate Sodium 141 Potassium 3.8 Chloride 107 Carbon Dioxide 29 Anion Gap 5.0 BUN 16 Creatinine 1.12 Est Cr Clr Drug Dosing 90.8 Est GFR ( Amer) 106.0 Est GFR (Non-Af Amer) 91.5 BUN/Creatinine Ratio 14.5 Glucose 78 Calcium 9.2 Total Bilirubin 0.8 AST 14 L ALT 19 Alkaline Phosphatase 68 Total Protein 7.1 Albumin 4.5 Globulin 2.6 Albumin/Globulin Ratio 1.7 TSH 2.050 Urine Color Urine Appearance Urine pH Ur Specific [place] Urine Protein Urine Glucose (UA) Urine Ketones Urine Blood Urine Nitrite Urine Bilirubin Urine Urobilinogen Ur Leukocyte Esterase Urine WBC (Auto) Urine RBC (Auto) U Hyaline Cast (Auto) U Epithel Cells (Auto) Urine Bacteria (Auto) Salicylates < 1.7 L Urine Opiates Screen Ur Methadone, Qual Acetaminophen < 2 L Urine Barbiturates Ur Phencyclidine (PCP) U Amphetamin/Meth Scrn MDMA (Ecstasy) Screen U Benzodiazepines Scrn Ur Cocaine Metabolite U Marijuana (THC) Screen Ethyl Alcohol mg/dL < 3.0 COVID-19 Eval Order SARS-CoV-2, RNA, NAAT 10/24/20 10/24/20 23:18 23:18 WBC RBC Hgb Hct MCV MCH MCHC RDW Std Deviation RDW Coeff of [place] Plt Count MPV Immature Gran % (Auto) Neut % (Auto) Lymph % (Auto) [place] % (Auto) Eos % (Auto) Baso % (Auto) Neut # (Auto) Lymph # (Auto) [place] # (Auto) Eos # (Auto) Baso # (Auto) Immature Gran # (Auto) Platelet Estimate Sodium Potassium Chloride Carbon Dioxide Anion Gap BUN Creatinine Est Cr Clr Drug Dosing Est GFR ( Amer) Est GFR (Non-Af Amer) BUN/Creatinine Ratio Glucose Calcium Total Bilirubin AST ALT Alkaline Phosphatase Total Protein Albumin Globulin Albumin/Globulin Ratio TSH Urine Color Urine Appearance Urine pH Ur Specific [place] Urine Protein Urine Glucose (UA) Urine Ketones Urine Blood Urine Nitrite Urine Bilirubin Urine Urobilinogen Ur Leukocyte Esterase Urine WBC (Auto) Urine RBC (Auto) U Hyaline Cast (Auto) U Epithel Cells (Auto) Urine Bacteria (Auto) Salicylates Urine Opiates Screen Ur Methadone, Qual Acetaminophen Urine Barbiturates Ur Phencyclidine (PCP) U Amphetamin/Meth Scrn MDMA (Ecstasy) Screen U Benzodiazepines Scrn Ur Cocaine Metabolite U Marijuana (THC) Screen Ethyl Alcohol mg/dL COVID-19 Eval [facility] SARS-CoV-2, RNA, NAAT NEGATIVE Hospital Course (1) Suicidal ideation: The patient was admitted to the [facility] ([facility]) on every 15 minute checks (behavioral with suicide precautions for safety. The patient will participate in group, recreational, and milieu therapies and will be offered additional individual and family sessions as clinically appropriate. 10/26/20--Will start 10mg of Lexapro today, patient already reporting improvement of mood which he attributes to increased social interaction. 10/25/20--We will continue to discuss the potential for medication options, patient refusing medication at this time. We will offer the patient as needed hydroxyzine 50mg qhs to help stabilize his sleeping schedule while on the unit. (2) Cannabis use disorder, moderate, dependence: The patient's use history suggests problematic substance use. Brief intervention was offered and accepted. Intervention was greater than 5 min in length and included assessing readiness to quit, advice on how to reduce or abstain, and to set a specific goal for this hospitalization. adoption worker will also assist in anticipating barriers to sobriety and in problem-solving for solutions to those problems while arranging for referral to appropriate treatment. The patient is in precontemplation stage with regards to transtheoretical model of change. The patient is advised to decrease consumption due to depressant effects and risk of interaction with prescription medications. The patient agreed to consider limiting his use and will be provided with recovery materials to continue to educate self on how to cope with their condition without abusing substances. Mental Health & Subst Abuse Tx Therapist Name of Therapist: . Waste Reduction Coordinator Name of Waste Reduction Coordinator: [employer] Phone Number for Waste Reduction Coordinator: [phone] Case Management Appointment Comment: Will follow up with you to schedule an intake Waste Reduction Coordinator Release of Information: Obtained, Reviewed and Signed Post Discharge Appointments Primary Care Physician Name Of Family Doctor: Raffi Moraes Primary [facility] Date of Appointment with PCP: 10/30/20 Time of Appointment with PCP: 11:00 a.m. (please arrive by 10:45 a.m., bring ID and insurance cards) Provider Appointment Comment: [address] [place] [address] Primary Care Release of Information: Obtained, Reviewed and Signed Partial or Psych Rehab Name of Partial or Psych Rehab: Kathleen Valentin Phone Number of Partial or Psych Rehab: [phone] Time of Appointment at Partial or Psych Rehab: Will follow up with you to schedule (utilize case advocate for assistance) Partial or Psych Rehab Appointment Comment: [address], [place] [address] Release of Information for Partial or Psych Rehab: Obtained, Reviewed and Signed Smoking Cessation Counseling Tobacco Cessation Medication Prescribed at Discharge: Offered & Pt Refused Contact Information Discharge Discharge Address: [address] [place] [address] Discharge Plan Discharge Items Patient Disposition: Home - Self-Care Reason For Visit: Depression with SI Discharge Diagnosis: Mood disorder Activity: Resume your previous activity Non-emergency contact: Primary Care Provider, Psychiatrist and Therapist Call non-emergency contact if: you have any medication questions and your symptoms worsen Follow-up/Referrals: PCP,NO [Primary Care Provider] - Diet: Regular Addtl Attending Provider Instructions: SPECIAL CARE INSTRUCTIONS: 1. Follow through with your scheduled aftercare appointments. If unable to keep an appointment, please call to reschedule. 2. Take your medication only as prescribed. Medication should not be changed or stopped without the approval of your doctor. In the event of worsening symptoms or concerns about side effects, contact your doctor immediately. 3. Utilize new healthy coping skills, anger management skills, and stress management skills learned during your hospitalization. Journal feelings and process them with a support person. Identify stressors or situations that may result in relapse, deterioration or inappropriate behaviors and develop a plan to deal with those issues. 4. If your coping skills are ineffective and you are in crisis, contact your outpatient providers for direction. If unable to reach your providers, please call the [facility] CRISIS LINE AT , go to the [facility] walk-in center at [address], [address], [place], or go to the closest Emergency Room. 5. Avoid alcohol and un-prescribed drugs. 6. You have been provided with the Mental Health Advance Directives Pamphlet for your review. AFTERCARE APPOINTMENTS: * Please call your insurance company prior to your scheduled appointment to confirm your aftercare providers are covered. Take your insurance information to your appointments. WHO TO CALL AND WHEN: Medical Emergencies: For questions or emergencies related to your hospital stay, please contact the Inpatient Behavioral Health Unit at [phone]. A shrimp peeler is on-call 16/11 for the Behavioral Health Unit for emergencies At any time you feel your situation is an emergency, you may also call 911 immediately. Pending Studies at Discharge: No Stand-Alone Forms: My [facility] [employer], Smoking Cessation Medications and DC Order Prescriptions: New escitalopram oxalate 10 mg Tablet 10 mg PO QAM Qty: 30 RF: 0 No Action No Known Home Medications RF: 0 Discharge Orders: Discharge Order (Routine); Ordered 10/27/20 Ordered By: Tyrese Jon Admission Data Admit Date/Time: 10/25/20 00:30 Attending Provider: Tyrese Jon Admit Provider: Tyrese Jon Primary Care Provider: PCP,NO Other Interventions: Discharge Summary Assessment (RN) Last Done: 10/27/20 08:42 PSY Interdisciplinary Discharge Planning Last Done: 10/27/20 09:44 Coding Level of Care Code 76996 D/C day mgmt > 30 min Diagnoses Suicidal ideation R45.851 Cannabis use disorder, moderate, dependence F12.20
[2020-10-28 15:41] LABS: Marijuana Quant, GCMS Urine 77 ng/mL (<5)
== END 2020-10-27 11:55 | disposition home or self-care (01) | DRG 880 ==
LOC: ED 17:03 → 3S 10-25 00:30